=== PATIENT | female | born 1990 | race Caucasian/White ===

== ENCOUNTER → 2016-06-16 | Outpatient (CLI) | payer OTHER ==
[2016-06-16 12:32] LABS: BASO % 0.5 % (0.0-1.0); EOS # 0.2 K/mm3 (0.0-0.50); EOS % 3.3 % (0.0-3.0); LARGE UNSTAINED CELL # 0.1 K/mm3 (0.0-0.4); LARGE UNSTAINED CELL % 1.4 % (0.0-4.0); LYMPH # 2.6 K/mm3 (1.5-6.5); LYMPH % 39.1 % (24.0-44.0); MEAN CORPUSCULAR HEMOGLOBIN 28.8 pg (27.0-33.0); MEAN CORPUSCULAR HGB CONC 33.3 g/dl (32.0-36.5); MEAN CORPUSCULAR VOLUME 86.5 fl (80.0-96.0); MONO # 0.3 K/mm3 (0.0-0.8); NEUTROPHILS # 3.3 K/mm3 (1.8-7.7); NEUTROPHILS % 51.7 % (36.0-66.0); PLATELET COUNT, AUTOMATED 263 k/mm3 (150-450); RED CELL DISTRIBUTION WIDTH 12.3 % (11.5-14.5); WHITE BLOOD COUNT 6.4 K/mm3 (4.0-10.0)
== END ==
LOC: M LAB 12:18
PROVIDERS: ATTEND Family Medicine Addiction Medicine
DX: E61.1 Iron deficiency (principal); R53.83 Other fatigue; R63.5 Abnormal weight gain

== ENCOUNTER 2016-09-04 10:16 | Inpatient (IN) | payer OTHER ==
[~2016-09-04] VITALS: Ht 167.6 cm; Wt 82.0 kg
[2016-09-04] MEDS ORDERED: BUSP5TA PO (10:27)
[2016-09-04] MEDS ORDERED: SERT25TA PO (10:27)
[2016-09-04 11:09] LABS: MEAN CORPUSCULAR HGB CONC 33.5 g/dl (32.0-36.5); MEAN CORPUSCULAR VOLUME 86.6 fl (80.0-96.0); WHITE BLOOD COUNT 6.8 K/mm3 (4.0-10.0)
[2016-09-04 11:32] LABS: METHADONE URINE NEGATIVE (NEGATIVE)
[2016-09-04 11:34] LABS: CONTROL LINE HCG INT CTR LINE PRESENT
[2016-09-04 11:51] LABS: ALBUMIN 3.9 GM/DL (3.2-5.2); ALBUMIN/GLOBULIN RATIO 1.18 (1.00-1.93); ALKALINE PHOSPHATASE 75 U/L (45-117); ALT/SGPT 20 U/L (12-78); ANION GAP 7 MEQ/L (8-16); AST/SGOT 15 U/L (15-37); BILIRUBIN,DIRECT 0.1 MG/DL (0.0-0.2); BILIRUBIN,TOTAL 0.3 MG/DL (0.2-1.0); BLOOD UREA NITROGEN 12 MG/DL (7-18); CALCIUM LEVEL 9.1 MG/DL (8.5-10.1); CARBON DIOXIDE LEVEL 27 MEQ/L (21-32); CHLORIDE LEVEL 105 MEQ/L (98-107); CREATININE FOR GFR 0.67 MG/DL (0.55-1.02); GLOMERULAR FILTRATION RATE > 60.0 (>60); GLUCOSE, FASTING 90 MG/DL (70-105); POTASSIUM SERUM 4.4 MEQ/L (3.5-5.1); SODIUM LEVEL 139 MEQ/L (136-145); TOTAL PROTEIN 7.2 GM/DL (6.4-8.2)
[2016-09-04 14:25] VITALS: BP 119/74
[2016-09-04] MEDS ORDERED: ACETAMINOPHEN TAB 650MG DOSE (2X325MG) PO PRN (16:00)
[2016-09-04] MEDS ORDERED: MOM 30ML SUSPENSION UDC PO PRN (16:00)
[2016-09-04] MEDS ORDERED: MAALOX 30 ML SUSP *UDC PO PRN (16:00)
[2016-09-04] MEDS ORDERED: traZODone 50 MG TAB PO PRN (16:00)
[2016-09-04] MEDS ORDERED: hydrOXYzine 25 MG TAB PO PRN (16:00)
[2016-09-04] MEDS ORDERED: SERTRALINE HCL 25 MG TABLET PO SCH (21:00)
[2016-09-04] MEDS: busPIRone 10 MG TAB PO SCH (21:21)
[2016-09-05 06:32] VITALS: BP 140/64
[2016-09-05] MEDS: busPIRone 10 MG TAB PO SCH ×2 (08:28→20:33)
--- NOTE | 2016-09-05 11:05 | HPEPDOC ---
Medical History and Physical Date of Admission Sep 04, 2016 at 12:50 History and Physical PCP: [facility] ATTENDING: Dr. Donell Ortez HPI: 26yoF admitted to [facility] for unspecified depressive disorder, being medically examined today. No acute medical complaints today. Denies any fevers, chills, weakness, fatigue, MCKEON, CP, SOB, cough, palpitations, abdominal pain, N/V /D or changes in bowel or bladder habits. 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 ROS: As noted in HPI, otherwise 11pt ROS of systems reviewed and remarkable only for LMP 08/21/16. PE: GEN: 26 yo F, appears stated age. Well-nourished, well developed. No acute distress. Alert and oriented x 3. Pleasant, interactive. HEENT: Normocephalic, atraumatic. Pupils are equal, round, and reactive to light. Extraocular movements are intact. No nystagmus appreciated. Sclera are nonicteric. Conjunctiva without injection. Nose midline. Nasal turbinates without bogginess. EACs both patent BL. TMs both visualized and gibson with good cone of light, no bulging or erythema. No facial asymmetry. Moist mucous membranes. Dentition fair. Pharynx pink and moist, no cobblestoning. Neck supple , trachea midline. No lymphadenopathy or thyromegaly appreciated. CHEST: Regular rate and rhythm, +S1, +S2 LUNGS: Clear to auscultation bilaterally. No wheezes, rales, or rhonchi. Breathing appears symmetric and easy. Patient is speaking in full sentences. No accessory muscle use. ABD: Round, soft, non-tender, non-distended. +Bowel sounds throughout. No rebound or guarding. No costovertebral angle tenderness. EXT: Pulses 2+ bilaterally dorsalis pedis and radial. No lower extremity edema appreciated. SKIN: Gordon, dry, warm. Capillary refill <2sec. No rashes. NEURO: Alert and oriented x 3. Cranial nerves III-XII are intact. No focal deficits appreciated. EKG: Pending. A&P: 26yoF admitted to [facility] for unspecified depressive disorder 1. Psych. Plan per Psychiatry. Obtain baseline EKG to assure the safety of psychiatric medications as they can prolong the QT interval. 2. Follow up with PCP on discharge. 3. Staff member Margaret JAMISON present throughout exam. Vital Signs Vital Signs Date Time Temp Pulse Resp B/P (MAP) Pulse Ox O2 Delivery O2 Flow Rate FiO2 09/05/16 06:32 97.5 65 16 140/64 (89) 09/04/16 14:25 99 Room Air Laboratory Data Labs 24H Laboratory Tests 2 09/04/16 11:00: Anion Gap 7L, Glomerular Filtration Rate > 60.0, Calcium Level 9.1, Aspartate Amino Transf (AST/SGOT) 15, Alanine Aminotransferase (ALT/SGPT) 20, Alkaline Phosphatase 75, Total Bilirubin 0.3, Direct Bilirubin 0.1, Total Protein 7.2, Albumin 3.9, Albumin/Globulin Ratio 1.18, Thyroid Stimulating Hormone (TSH) 2.400, Human Chorionic Gonadotropin, Qual NEGATIVE, Salicylates Level < 1.7L, Urine Amphetamines Screen NEGATIVE, Urine Benzodiazepines Screen NEGATIVE, Urine Opiates Screen NEGATIVE, Urine Methadone Screen NEGATIVE, Acetaminophen Level < 2.0L, Urine Barbiturates Screen NEGATIVE, Urine Phencyclidine Screen NEGATIVE, Urine Cocaine Metabolite Screen NEGATIVE, Urine Cannabinoids Screen NEGATIVE, Ethyl Alcohol Level 0.003 CBC/BMP Laboratory Tests 09/04/16 11:00 Red Blood Count 4.44, Mean Corpuscular Volume 86.6, Mean Corpuscular Hemoglobin 29.0, Mean Corpuscular Hemoglobin Concent 33.5, Red Cell Distribution Width 13.0 Home Medications Scheduled Buspirone HCl (Buspirone HCl) 5 Mg Tab, 5 MG PO BID Sertraline Hcl (Sertraline HCl) 25 Mg Tab, 25 MG PO QHS Allergies Coded Allergies: Amoxicillin (Verified Allergy, Unknown, hives, 09/04/16) Rachel Alaniz Sep 05, 2016 11:05
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
[2016-09-05 18:27] VITALS: BP 122/67
[2016-09-05] MEDS: DIVALPROEX 250 MG TAB PO SCH (20:33)
[2016-09-05] MEDS ORDERED: SERTRALINE HCL 50 MG TAB PO SCH (21:00)
--- NOTE | 2016-09-06 06:20 | ECGEPIP ---
Stationary ECG Study [facility] Test Date: 2016-09-05 Pat Name: GUILLERMO HENAO Department: Room: [place] [address] Gender: F Personal Protection Specialist: : 1990 Requested By: Rachel Alaniz Order Number: [id number] Reading MD: Donell Ortez Measurements Intervals [place] Rate: 64 P: 34 CO: 139 QRS: 9 QRSD: 93 T: 63 QT: 401 QTc: 414 Interpretive Statements SINUS RHYTHM NONSPECIFIC T-WAVE ABNORMALITY Comparison tracing not on file Electronically Signed On 09-06-2016 6:20:10 EDT by Donell Ortez
[2016-09-06 07:15] VITALS: BP 136/67
[2016-09-06] MEDS: busPIRone 10 MG TAB PO SCH ×2 (08:33→20:27)
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
[2016-09-06 18:00] VITALS: BP 134/74
[2016-09-06] MEDS: DIVALPROEX 250 MG TAB PO SCH (20:27)
[2016-09-06] MEDS: QUEtiapine FUMARATE 12.5 MG HALF-TAB PO SCH (20:27)
[2016-09-06] MEDS ORDERED: SERTRALINE HCL 25 MG TABLET PO ONE (21:00)
[2016-09-07 06:00] VITALS: BP 131/69
[2016-09-07] MEDS: busPIRone 10 MG TAB PO SCH ×2 (08:31→20:31)
[2016-09-07] MEDS: PARoxetine 10MG TABLET PO SCH (08:31)
--- NOTE | 2016-09-07 12:45 | IPN ---
DATE: 09/07/2016 CHIEF COMPLAINT: Says feels better. OBJECTIVE: Seen for followup in the presence of staff. Says feels better, and that she is less anxious. Says sleep is improved, as is appetite. She indicates is less anxious. MENTAL STATUS EXAMINATION: Neat and cooperative. No agitation. No psychomotor retardation. Coherent. Affect restricted but reactive. Currently denies any thoughts of harming herself or anyone else. Does not appear to be internally preoccupied. Cognition grossly intact. Judgment and insight possibly improved. Denies suicidal thoughts or intents. ASSESSMENT: Generalized anxiety disorder. Autism spectrum disorder by history. PLAN: Continue current care and observations, encouraged participation in activities in the unit. Continue with the fluoxetine at 10 mg daily, divalproex and Depakote at 250 mg at night. BuSpar 10 mg twice a day.
[2016-09-07 18:00] VITALS: BP 118/74
[2016-09-07] MEDS: DIVALPROEX 250 MG TAB PO SCH (20:31)
[2016-09-07] MEDS: QUEtiapine FUMARATE 12.5 MG HALF-TAB PO SCH (20:31)
[2016-09-08 06:00] VITALS: BP 121/67
[2016-09-08] MEDS: PARoxetine 10MG TABLET PO SCH (09:13)
[2016-09-08] MEDS: busPIRone 10 MG TAB PO SCH ×2 (09:13→20:53)
[2016-09-08 18:00] VITALS: BP 126/82
--- NOTE | 2016-09-08 19:03 | IPN ---
DATE: 09/08/2016 CHIEF COMPLAINT: Says feels better. SUBJECTIVE: Seen for followup. Indicates has been doing better. Moods have been good, less anxious. MENTAL STATUS EXAMINATION; Cooperative, coherent. No agitation. Affect reactive, broad. Currently denies any thoughts of harming herself or anyone else. No evidence at present of any psychosis. Cognition grossly intact. Judgment and insight improved. ASSESSMENT: 1. Generalized anxiety disorder. 2. Autism spectrum disorder. PLAN: Continue current care, observations. Encourage participation and activities in the unit.
[2016-09-08] MEDS: DIVALPROEX 250 MG TAB PO SCH (20:53)
[2016-09-08] MEDS: QUEtiapine FUMARATE 12.5 MG HALF-TAB PO SCH (20:53)
[2016-09-09 06:14] VITALS: BP 126/60
[2016-09-09] MEDS: PARoxetine 10MG TABLET PO SCH (08:26)
[2016-09-09] MEDS: busPIRone 10 MG TAB PO SCH ×2 (08:26→20:31)
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
[2016-09-09 18:00] VITALS: BP 122/62
[2016-09-09] MEDS: QUEtiapine FUMARATE 12.5 MG HALF-TAB PO SCH (20:31)
[2016-09-09] MEDS: DIVALPROEX 500 MG TAB PO SCH (20:31)
[2016-09-10 06:14] VITALS: BP 131/67
[2016-09-10] MEDS: busPIRone 10 MG TAB PO SCH ×2 (08:52→20:13)
[2016-09-10] MEDS: PARoxetine 20 MG TAB PO SCH (08:52)
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
[2016-09-10 18:32] VITALS: BP 123/64
[2016-09-10] MEDS: QUEtiapine FUMARATE 12.5 MG HALF-TAB PO SCH (20:13)
[2016-09-10] MEDS: DIVALPROEX 500 MG TAB PO SCH (20:13)
[2016-09-11 06:39] VITALS: BP 122/79
[2016-09-11] MEDS: busPIRone 10 MG TAB PO SCH ×2 (08:33→20:17)
[2016-09-11] MEDS: PARoxetine 20 MG TAB PO SCH (08:33)
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
[2016-09-11 18:19] VITALS: BP 121/69
[2016-09-11] MEDS: QUEtiapine FUMARATE 12.5 MG HALF-TAB PO SCH (20:17)
[2016-09-11] MEDS ORDERED: DIVALPROEX 250 MG TAB PO SCH (21:00)
[2016-09-12 06:58] VITALS: BP 90/52
[2016-09-12] MEDS ORDERED: DEPA250T32 PO (08:22)
[2016-09-12] MEDS: busPIRone 10 MG TAB PO SCH (08:22)
[2016-09-12] MEDS ORDERED: QUET1TAB7 PO (08:22)
[2016-09-12] MEDS ORDERED: BUSP10TA PO (08:22)
[2016-09-12] MEDS ORDERED: PARO20TA3 PO (08:22)
[2016-09-12] MEDS: PARoxetine 20 MG TAB PO SCH (08:22)
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
[2016-09-13] MEDS ORDERED: QUET1TAB7 PO (11:33)
== END 2016-09-12 12:08 | disposition home or self-care (01) | DRG 758 ==
LOC: M ED 10:54 → M ED INP 12:50 → M PSY 14:45
PROVIDERS: ADMIT Psychiatry & Neurology Psychiatry; ATTEND Psychiatry & Neurology Psychiatry
DX: F63.9 Impulse disorder, unspecified (principal); F84.0 Autistic disorder; F41.1 Generalized anxiety disorder; Z91.5 Personal history of self-harm; Z82.61 Family history of arthritis; Z82.0 Family history of epilepsy and other diseases of the nervous system; Z79.899 Other long term (current) drug therapy

== ENCOUNTER → 2017-05-09 | Outpatient (CLI) | payer OTHER ==
[2017-05-09 10:41] LABS: VALPROIC ACID (DEPAKOTE) 72.1 UG/ML (50.0-100.0)
== END ==
LOC: M LAB 09:32
DX: F31.81 Bipolar II disorder (principal)
CPT/HCPCS: 80164

== ENCOUNTER → 2017-09-05 | Outpatient (REF) | payer OTHER | LOC: M LAB REF 16:40 | DX: Z12.4 Encounter for screening for malignant neoplasm of cervix (principal) ==

== ENCOUNTER → 2019-02-09 | Outpatient (REF) | payer OTHER ==
[~2019-02-09] MED LIST: BUSP10TA PO; BUSP5TA PO; DEPA250T32 PO; PARO20TA3 PO; QUET1TAB7 PO; SERT25TA85 PO
== END ==
LOC: M LAB REF 17:44
PROVIDERS: ATTEND Obstetrics & Gynecology
DX: Z12.4 Encounter for screening for malignant neoplasm of cervix (principal)

== ENCOUNTER → 2019-04-15 | Outpatient (REF) | payer OTHER, MEDICAID ==
[2019-04-15 13:33] LABS: BASO # 0.1 10^3/uL (0.0-0.2); BASO % 0.9 % (0.0-1.0); EOS # 0.2 10^3/uL (0.0-0.5); EOS % 2.6 % (0.0-3.0); HEMATOCRIT 39.7 % (36.0-47.0); HEMOGLOBIN 12.7 g/dl (12.0-15.5); LYMPH # 2.4 10^3/uL (1.5-5.0); LYMPH % 41.8 % (24.0-44.0); MEAN CORPUSCULAR HEMOGLOBIN 28.9 pg (27.0-33.0); MEAN CORPUSCULAR VOLUME 90.4 fl (80.0-96.0); MONO # 0.4 10^3/uL (0.0-0.8); MONO % 6.9 % (0.0-5.0); NEUTROPHILS # 2.8 10^3/uL (1.5-8.5); NEUTROPHILS % 47.6 % (36.0-66.0); PLATELET COUNT, AUTOMATED 267 10^3/uL (150-450); RED BLOOD COUNT 4.39 10^6/uL (4.00-5.40); WHITE BLOOD COUNT 5.8 10^3/uL (4.0-10.0)
[2019-04-15 13:49] LABS: ALBUMIN 3.9 GM/DL (3.2-5.2); ALT/SGPT 14 U/L (12-78); BILIRUBIN,TOTAL 0.3 MG/DL (0.2-1.0); BLOOD UREA NITROGEN 9 MG/DL (7-18); CARBON DIOXIDE LEVEL 26 MEQ/L (21-32); CHLORIDE LEVEL 104 MEQ/L (98-107); CHOLESTEROL LEVEL 223 MG/DL (<200); CHOLESTEROL RISK RATIO 3.231 (<5); CREATININE FOR GFR 0.86 MG/DL (0.55-1.30); FREE T4 1.01 NG/DL (0.76-1.46); GLOMERULAR FILTRATION RATE > 60.0 (>60); GLUCOSE, FASTING 104 MG/DL (70-100); HDL CHOLESTEROL 69 MG/DL (>40); LDL CHOLESTEROL 135 MG/DL (<100); NON-HDL-C 154 MG/DL; SODIUM LEVEL 138 MEQ/L (136-145); TOTAL 25(OH) VITAMIN D 53.2 NG/ML (30.0-100.0); TOTAL PROTEIN 7.4 GM/DL (6.4-8.2); TRIGLYCERIDES LEVEL 94 MG/DL (<150)
[2019-04-15 14:03] LABS: HEMOGLOBIN A1c 5.2 %
== END ==
LOC: M LAB REF 12:16
PROVIDERS: ATTEND Nurse Practitioner Family
DX: Z13.29 Encounter for screening for other suspected endocrine disorder (principal); E78.5 Hyperlipidemia, unspecified

== ENCOUNTER → 2019-09-23 | Outpatient (REF) | payer OTHER | LOC: M LAB REF 17:27 | PROVIDERS: ATTEND Physician Assistant | DX: D22.5 Melanocytic nevi of trunk (principal) ==

== ENCOUNTER → 2020-02-08 | Outpatient (REF) | payer OTHER, MEDICAID ==
[2020-02-08 13:28] LABS: HEMATOCRIT 39.5 % (36.0-47.0); HEMOGLOBIN 13.2 g/dl (12.0-15.5); MEAN CORPUSCULAR HEMOGLOBIN 29.7 pg (27.0-33.0); MEAN CORPUSCULAR HGB CONC 33.4 g/dl (32.0-36.5); MEAN CORPUSCULAR VOLUME 88.8 fl (80.0-96.0); PLATELET COUNT, AUTOMATED 275 10^3/uL (150-450); RED BLOOD COUNT 4.45 10^6/uL (4.00-5.40); WHITE BLOOD COUNT 6.6 10^3/uL (4.0-10.0)
[2020-02-08 13:59] LABS: HCG, SERUM QUANTITATIVE < 1.0 MIU/ML
== END ==
LOC: M PLALAB 11:33
PROVIDERS: ATTEND Obstetrics & Gynecology
DX: N93.9 Abnormal uterine and vaginal bleeding, unspecified (principal)

== ENCOUNTER → 2020-02-21 | Outpatient (CLI) | payer OTHER | LOC: M LABSMTC 10:23 | PROVIDERS: ATTEND Family Medicine | DX: Z20.828 Contact with and (suspected) exposure to other viral communicable diseases (principal) ==

== ENCOUNTER 2020-05-26 08:53 | Emergency (ER) | payer OTHER ==
[~2020-05-26] VITALS: Ht 167.6 cm; Wt 100.0 kg
[2020-05-26 08:53] VITALS: BP 150/87
[~2020-05-26 08:53] MED LIST changes: -QUET1TAB7 PO; +QUET25TA3 PO
--- OUTSIDE RECORDS SUMMARY | 2020-05-26 08:57 | CCD ---
Author Author Precious Augustin Organization Unknown Address [address] [place] [address] Phone Care Team Providers Care Senior Economist Name Role Phone Demetria Betsy PCP Allergies, Adverse Reactions, Alerts Concept Allergy Name Reaction Severity Onset Date Status Documentation Date Phone Number Npid Taxonomy Code Taxonomy Desc Author Last Name Author Fi rst Name Concept Type 175820 amoxicillin urticaria (hives) Active 08/19/2014 [id number] Psychiatric/Mental Health Lexus Renae RX NORM Problem List Concept Problem Description Status Start Date Created Date Resolv ed Date Snomed Code F41.1 Generalized Anxiety Disorder Active 02/27/2015 02/27/2015 F31.81 Bipolar II Disorder Active 01/31/2017 01/31/2017 Medications Rx Norm Medication Route Route Concept Start Date Stop Date Dosage Ramy quency Duration Formula Strength Dosage Form Dosage Form Code Dosage Description Medication Id Account Npid Author First Name Author Last Name Taxonomy Code Taxonomy Desc Phone Number [phone] Depakote by mouth [id number] 04/27/2019 at bedtime 250 mg tablet,delayed release (DR/EC) 96999 [id number] [phone] Pauline Zhao [id number] Psychiatric/Mental Health [phone] paroxetine HCl by mouth [id number] 07/29/2019 once a day 3 0 mg tablet 33177 814918 [phone] Pauline Zhao [id number] Psychiatric/Menta l Health [phone] [id number] divalproex by mouth [id number] 07/29/2019 every night 5 00 mg tablet,delayed release (DR/EC) 82878 968017 [id number] Lety Zhao [id number] Psychiatric/Mental Health [id number] 037199 buspirone by mouth Z44567 01/25/2020 twice a day 15 mg tab let 89383 219941 [id number] Pauline Zhao [id number] Psychiatric/Mental Health [id number] Social History Social History Element Description Concept Effective Date Smoking Status Current some day smoker [id number] Immunizations No Data in Section Vital Signs No Data in Section Procedures Date Concept Id Description Targeted Site Concept Targeted Site Concept Type 05/11/2020 51165 Extended Individual Psychotherapy - 45 min CPT Patient has no history of implantable de vices Encounters Encounter Start Date End Date Encounter Type Description Diagnosis Di agnosis Desc Location Author First Name Author Last Name Npid Taxonomy Cod e Taxonomy Desc Phone Number Location Addr1 Location Addr2 Location [facility] [id number] 05/11/2020 05/11/2020 16867 Extended Individual Psych otherapy - 45 min F41.1 Generalized Anxiety Disorder [facility] Dani Meyer [id number] Key Bed Installer [id number] [address] [address] Plan of Treatment No Data in Section Lab Results No Data in Section Instructions No Data in Section Insurance Providers Insurance Id Policy Effective Date Policy Thru Date Company N dilia [id number] 2013 [employer] Managed Roseline parmar
--- OUTSIDE RECORDS SUMMARY | 2020-05-26 08:57 | CCD ---
Author Author Precious Augustin Organization Unknown Address [address] [place] [address] Phone Care Team Providers Care Development Rep Name Role Phone Demetria Betsy PCP Allergies, Adverse Reactions, Alerts Concept Allergy Name Reaction Severity Onset Date Status Documentation Date Phone Number Npid Taxonomy Code Taxonomy Desc Author Last Name Author Fi rst Name Concept Type 182406 amoxicillin urticaria (hives) Active 08/19/2014 [id number] Psychiatric/Mental Health Lexus Renae RX NORM Problem [...] Name Taxonomy Code Taxonomy Desc Phone Number [phone] Depakote by mouth [id number] 04/27/2019 at bedtime 250 mg tablet,delayed release (DR/EC) 31318 170182 [phone] Pauline Zhao [id number] Psychiatric/Mental Health [phone] 2250417 paroxetine HCl by mouth [id number] 07/29/2019 once a day 3 0 mg tablet 72799 660494 [id number] Pauline Zhao [id number] Psychiatric/Menta l Health [id number] [id number] divalproex by mouth B79470 07/29/2019 every night 5 00 mg tablet,delayed release (DR/EC) 28139 981650 [id number] Lety Zhao [id number] Psychiatric/Mental Health [id number] 915119 buspirone by mouth Q41614 01/25/2020 twice a day 15 mg tab let 64035 620209 [id number] Pauline Zaho [id number] Psychiatric/Mental Health [id number] Social History Social History Element Description Concept Effective Date Smoking Status Current some day smoker [id number] Immunizations No Data in Section Vital Signs No Data in Section Procedures Date Concept Id Description Targeted Site Concept Targeted Site Concept Type 05/04/2020 76903 Extended Individual Psychotherapy - 45 min CPT Patient has no history of implantable de vices Encounters Encounter Start Date End Date Encounter Type Description Diagnosis Di agnosis Desc Location Author First Name Author Last Name Npid Taxonomy Cod e Taxonomy Desc Phone Number Location Addr1 Location Addr2 Location [facility] Location Sta te Location Zip [id number] 05/04/2020 05/04/2020 83515 Extended Individual Psych otherapy - 45 min F41.1 Generalized Anxiety Disorder [facility] Dani Meyer [id number] Safe Technician [id number] [address] [address] Plan of Treatment No Data in Section Lab Results No Data in Section Instructions No Data in Section Insurance Providers Insurance Id Policy Effective Date Policy Thru Date Company N dilia [id number] 2013 [employer] Man[employer] Roseline parmar
--- OUTSIDE RECORDS SUMMARY | 2020-05-26 08:57 | CCD ---
Author Author Precious Zhao Organization Unknown Address [address] [place] [address] Phone Care Team Providers Care Independent Living Advisor Name Role Phone Cece Pauline PCP Allergies, Adverse Reactions, Alerts Concept Allergy Name Reaction Severity Onset Date Status Documentation Date Phone Number Npid Taxonomy Code Taxonomy Desc Author Last Name Author Fi rst Name Concept Type 534085 amoxicillin urticaria (hives) Active 08/19/2014 [id number] Psychiatric/Mental Health Nans Batool RX NORM Problem List Concept Problem Description [...] Name Taxonomy Code Taxonomy Desc Phone Number [phone] Depakote by mouth [id number] 04/27/2019 at bedtime 250 mg tablet,delayed release (DR/EC) 81113 732914 [id number] Pauline Zhao [id number] Psychiatric/Mental Health [phone] 1147791 paroxetine HCl by mouth M30089 07/29/2019 once a day 3 0 mg tablet 96263 437564 [id number] Pauline Zhao [id number] Psychiatric/Menta l Health [id number] 1250745 divalproex by mouth T32109 07/29/2019 every night 5 00 mg tablet,delayed release (DR/EC) 35987 297999 [id number] Lety Zhao [id number] Psychiatric/Mental Health [id number] 282165 buspirone by mouth T32830 01/25/2020 twice a day 15 mg tab let 42794 416478 [id number] Pauline Zhao [id number] Psychiatric/Mental Health [id number] Social History Social History Element Description Concept Effective Date Smoking Status Current some day smoker [id number] Immunizations No Data in Section Vital Signs Encounter Date Height Ins Weight Lbs Bmi Bp Systolic Bp Diastoli c Oxygen Saturation Respiration Rate Pulse Rate Body Temp Head Circumference Heigh t Lying 04/19/2020 0.00 0.00 0.00 0 0 0.00 0 0 0.00 0.0 0.0 0 Procedures Date Concept Id Description Targeted Site Concept Targeted Site Concept Type 04/19/2020 88183-55 [facility] Telemed E/M Lvl 3--Est pt CPT 04/19/2020 01500-45 Telemed A/O 30" CPT Patient has no history of implantable de vices Encounters Encounter Start Date End Date Encounter Type Description Diagnosis Di agnosis Desc Location Author First Name Author Last Name Npid Taxonomy Cod e Taxonomy Desc Phone Number Location Addr1 Location Addr2 Location [facility] Location [facility] [id number] 04/19/2020 04/19/2020 61468-15 [facility] Telemed E/M Lvl 3--Est p t F41.1 Generalized Anxiety Disorder [facility] Cece Carpenter [phone] [id number] Psychiatric/Mental Health [phone] [address] [facility] [address] Plan of Treatment No Data in Section Lab Results No Data in Section Instructions No Data in Section Functional Cognitive Status No Data in Section Insurance Providers Insurance Id Policy Effective Date Policy Thru Date [employer] [id number] 2013 [employer] Managed Roseline parmar
--- OUTSIDE RECORDS SUMMARY | 2020-05-26 08:57 | CCD ---
Author Author Precious Augustin Organization Unknown Address [address] [place] [address] Phone Care Team Providers Care Illuminating Engineer Name Role Phone Augustincipriano Betsy PCP Allergies, Adverse Reactions, Alerts Concept Allergy Name Reaction Severity Onset Date Status Documentation Date Phone Number Npid Taxonomy Code Taxonomy Desc Author Last Name Author Fi rst Name Concept Type 633889 amoxicillin urticaria (hives) Active 08/19/2014 [id number] Psychiatric/Mental Health Lexus Renae RX NORM Problem [...] Name Taxonomy Code Taxonomy Desc Phone Number [id number] Seroquel 09/19/2017 at bedtime 25 mg tablet 72452 712954 [phone] Pauline Zhao [id number] Psychiatric/Mental Health [phone] Depakote by mouth [id number] 04/27/2019 at bedtime 250 mg tablet,delayed release (DR/EC) 06120 947315 [id number] Pauline Zhao [id number] Psychiatric/Mental Health [phone] 0798515 paroxetine HCl by mouth O02647 07/29/2019 once a day 3 0 mg tablet 28328 930836 [id number] Pauline Zhao [id number] Psychiatric/Menta l Health [phone] 5000996 divalproex by mouth E03500 07/29/2019 every night 5 00 mg tablet,delayed release (DR/EC) 95415 465265 [id number] Lety Zhao [id number] Psychiatric/Mental Health [id number] 346172 buspirone by mouth D12461 01/25/2020 twice a day 15 mg tab let 15965 292748 [id number] Pauline Zhao [id number] Psychiatric/Mental Health [id number] Social History Social History Element Description Concept Effective Date Smoking Status Current some day smoker [id number] Immunizations No Data in Section Vital Signs No Data in Section Procedures Date Concept Id Description Targeted Site Concept Targeted Site Concept Type 04/10/2020 20927 Extended Individual Psychotherapy - 45 min CPT Patient has no history of implantable de vices Encounters Encounter Start Date End Date Encounter Type Description Diagnosis Di agnosis Desc Location Author First Name Author Last Name Npid Taxonomy Cod e Taxonomy Desc Phone Number Location Addr1 Location Addr2 [address] 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
--- OUTSIDE RECORDS SUMMARY | 2020-05-26 08:57 | CCD ---
Author Author Precious Augustin Organization Unknown Address [address] [place] [address] Phone Care Team Providers Care [facility] Name Role Phone Carmen Augustinica PCP Allergies, Adverse Reactions, Alerts Concept Allergy Name Reaction Severity Onset Date Status Documentation Date Phone Number Npid Taxonomy Code Taxonomy Desc Author Last Name Author Fi rst Name Concept Type 501395 amoxicillin urticaria (hives) Active 08/19/2014 [id number] [facility] Renae RX NORM Problem [...] Name Taxonomy Code Taxonomy Desc Phone Number [id number] Seroquel 09/19/2017 at bedtime 25 mg tablet 27652 [id number] [phone] Pauline Zhao [id number] Psych[facility] [phone] Depakote by mouth [id number] 04/27/2019 at bedtime 250 mg tablet,delayed release (DR/EC) 06940 [phone] Pauline Zhao [id number] Psych[facility] [phone] [id number] paroxetine HCl by mouth [id number] 07/29/2019 once a day 3 0 mg tablet 46354 [id number] Paulinesohail Zhao [id number] [facility] [phone] divalproex by mouth [id number] 07/29/2019 every night 5 00 mg tablet,delayed release (DR/EC) 93428 [id number] [id number] Lety Zhao [id number] Psych[facility] [phone] [id number] buspirone by mouth [id number] 01/25/2020 twice a day 15 [place] 50382 [id number] Pauline Zhao [id number] Psych[facility] [id number] Social History Social History Element Description Concept Effective Date Smoking Status Current some day smoker [id number] Immunizations No Data in Section Vital Signs No Data in Section Procedures Date Concept Id Description Targeted Site Concept Targeted Site Concept Type 03/13/2020 37881 Extended Individual Psychotherapy - 45 min CPT Patient has no history of implantable de vices Encounters Encounter Start Date End Date Encounter Type Description Diagnosis Di agnosis Desc Location Author First Name Author Last Name Npid Taxonomy Cod e Taxonomy Desc Phone Number Location Addr1 Location Addr2 Location [facility] Location [place] Location Zip [id number] 03/13/2020 03/13/2020 40482 Extended Individual Psych otherapy - 45 min F41.1 Generalized Anxiety Disorder Community [facility] Dani Meyer [phone] [id number] Biochemistry Technician [phone] [address] [address] Plan of Treatment No Data in Section Lab Results No Data in Section Instructions No Data in Section Insurance Providers Insurance Id Policy Effective Date Policy Thru Date [employer] Barbi dobbs [id number] 2013 [employer] Managed Roseline parmar
--- OUTSIDE RECORDS SUMMARY | 2020-05-26 08:58 | CCD ---
Author Author [facility] Organization [facility] Address Unknown Phone Unavailable Care Team Providers Care Pass Worker Name Role Phone Can Ortez MD Unavailable Unavailable Can Ortez MD Unavailable Unavailable Can Ortez MD Unavailable Unavailable Can Ortez MD Unavailable Unavailable Can Ortez MD Unavailable Unavailable Can Ortez MD Unavailable Unavailable Can Ortez MD Unavailable Unavailable Can Ortez MD Unavailable Unavailable Can Ortez MD Unavailable Unavailable Can Ortez MD Unavailable Unavailable Can Ortez MD Unavailable Unavailable Can Ortez MD Unavailable Unavailable Can Ortez MD Unavailable Unavailable Can Ortez MD Unavailable Unavailable Can Ortez MD Unavailable Unavailable Can Ortez MD Unavailable Unavailable Can Ortez MD Unavailable Unavailable Can Ortez MD Unavailable Unavailable Can Ortez MD Unavailable Unavailable Can Ortez MD Unavailable Unavailable Can Ortez MD Unavailable Unavailable Can Ortez MD Unavailable Unavailable Can Ortez MD Unavailable Unavailable Can Ortez MD Unavailable Unavailable Can Ortez MD Unavailable Unavailable Can Ortez MD Unavailable Unavailable Can Ortez MD Unavailable Unavailable Can Ortez MD Unavailable Unavailable Can Ortez MD Unavailable Unavailable Can Ortez MD Unavailable Unavailable Can Ortez MD Unavailable Unavailable Can Ortez MD Unavailable Unavailable Can Ortez MD Unavailable Unavailable Can Ortez MD Unavailable Unavailable Can Ortez MD Unavailable Unavailable Can Ortez MD Unavailable Unavailable Can Ortez MD Unavailable Unavailable Can Ortez MD Unavailable Unavailable Can Ortez MD Unavailable Unavailable Can Ortez MD Unavailable Unavailable Can Ortez MD Unavailable Unavailable Can Ortez MD Unavailable Unavailable Can Ortez MD Unavailable Unavailable Can Ortez MD Unavailable Unavailable Can Ortez MD Unavailable Unavailable Can Ortez MD Unavailable Unavailable Can Ortez MD Unavailable Unavailable Can Ortez MD Unavailable Unavailable Can Ortez MD Unavailable Unavailable Can Ortez MD Unavailable Unavailable Can Ortez MD Unavailable Unavailable Can Ortez MD Unavailable Unavailable Can Ortez MD Unavailable Unavailable Can Ortez MD Unavailable Unavailable Can Ortez MD Unavailable Unavailable Can Ortez MD Unavailable Unavailable Can Ortez MD Unavailable Unavailable Can Ortez MD Unavailable Unavailable Can Ortez MD Unavailable Unavailable Can Ortez MD Unavailable Unavailable Can Ortez MD Unavailable Unavailable Can Ortez MD Unavailable Unavailable Can Ortez MD Unavailable Unavailable Can Ortez MD Unavailable Unavailable Can Ortez MD Unavailable Unavailable Can Ortez MD Unavailable Unavailable Can Ortez MD Unavailable Unavailable Can Ortez MD Unavailable Unavailable Can Ortez MD Unavailable Unavailable Can Ortez MD Unavailable Unavailable Can Ortez MD Unavailable Unavailable Can Ortez MD Unavailable Unavailable Can Ortez MD Unavailable Unavailable Can Ortez MD Unavailable Unavailable Can Ortez MD Unavailable Unavailable Can Ortez MD Unavailable Unavailable Can Ortez MD Unavailable Unavailable Can Ortez MD Unavailable Unavailable Can Ortez MD Unavailable Unavailable Can Ortez MD Unavailable Unavailable Can Ortez MD Unavailable Unavailable Can Ortez MD Unavailable Unavailable Neelima Can Rendon MD Unavailable Unavailable Neelima, Can Rendon MD Unavailable Unavailable Neelima, Can Rendon MD Unavailable Unavailable Neelima, Can Rendon MD Unavailable Unavailable Ortez, Can Rendon MD Unavailable Unavailable Ortez, Can Rendon MD Unavailable Unavailable Ortez, Can Rendon MD Unavailable Unavailable Dario, C Kendall Unavailable Unavailable Goldston, C Kendall Unavailable Unavailable Goldston, C Kendall Unavailable Unavailable Dario, C Kendall Unavailable Unavailable Goldston, C Kendall Unavailable Unavailable Goldston, C Kendall Unavailable Unavailable Dario, C Kendall Unavailable Unavailable Ashland, K Pauline PMH-PULMONARY PHYSICAL THERAPIST Unavailable Unavailable Cece, K Pauline PMH-PULMONARY PHYSICAL THERAPIST Unavailable Unavailable [place]land, K Pauline PMH-PULMONARY PHYSICAL THERAPIST Unavailable Unavailable [place], K Pauline PMH-PULMONARY PHYSICAL THERAPIST Unavailable Unavailable [place], K Pauline PMH-PULMONARY PHYSICAL THERAPIST Unavailable Unavailable [place], K Pauline PMH-PULMONARY PHYSICAL THERAPIST Unavailable Unavailable KEVIN, T MARS BISCUITWARE BRUSHER Unavailable Unavailable KEVIN, T MARS BISCUITWARE BRUSHER Unavailable Unavailable KEVIN, T MARS BISCUITWARE BRUSHER Unavailable Unavailable KEVIN, T MARS BISCUITWARE BRUSHER Unavailable Unavailable KEVIN, T MARS BISCUITWARE BRUSHER Unavailable Unavailable KEVIN, T MARS BISCUITWARE BRUSHER Unavailable Unavailable KEVIN, T MARS BISCUITWARE BRUSHER Unavailable Unavailable KEVIN, T MARS BISCUITWARE BRUSHER Unavailable Unavailable KEVIN, T MARS BISCUITWARE BRUSHER Unavailable Unavailable KEVIN, T MARS BISCUITWARE BRUSHER Unavailable Unavailable KEVIN, T MARS BISCUITWARE BRUSHER Unavailable Unavailable KEVIN, T MARS BISCUITWARE BRUSHER Unavailable Unavailable KEVIN, T MARS BISCUITWARE BRUSHER Unavailable Unavailable KEVIN, T MARS BISCUITWARE BRUSHER Unavailable Unavailable KEVIN, T MARS BISCUITWARE BRUSHER Unavailable Unavailable KEVIN, T MARS BISCUITWARE BRUSHER Unavailable Unavailable KEVIN, T MARS BISCUITWARE BRUSHER Unavailable Unavailable KEVIN, T MARS BISCUITWARE BRUSHER Unavailable Unavailable KEVIN, T MARS BISCUITWARE BRUSHER Unavailable Unavailable KEVIN, T MARS BISCUITWARE BRUSHER Unavailable Unavailable KEVIN, T MARS BISCUITWARE BRUSHER Unavailable Unavailable KEVIN, T MARS BISCUITWARE BRUSHER Unavailable Unavailable KEVIN, T MARS BISCUITWARE BRUSHER Unavailable Unavailable KEVIN, T MARS BISCUITWARE BRUSHER Unavailable Unavailable KEVIN, T MARS BISCUITWARE BRUSHER Unavailable Unavailable KEVIN, T MARS BISCUITWARE BRUSHER Unavailable Unavailable KEVIN, T MARS BISCUITWARE BRUSHER Unavailable Unavailable KEVIN, T MARS BISCUITWARE BRUSHER Unavailable Unavailable KEVIN, T MARS BISCUITWARE BRUSHER Unavailable Unavailable KEVIN, T MARS BISCUITWARE BRUSHER Unavailable Unavailable KEVIN, T MARS BISCUITWARE BRUSHER Unavailable Unavailable KEVIN, T MARS BISCUITWARE BRUSHER Unavailable Unavailable KEVIN, T MARS BISCUITWARE BRUSHER Unavailable Unavailable KEVIN, T MARS BISCUITWARE BRUSHER Unavailable Unavailable KEVIN, T MARS BISCUITWARE BRUSHER Unavailable Unavailable KEVIN, T MARS BISCUITWARE BRUSHER Unavailable Unavailable KEVIN, T MARS BISCUITWARE BRUSHER Unavailable Unavailable KEVIN, T MARS BISCUITWARE BRUSHER Unavailable Unavailable GoutremBetsy cota Unavailable Bry, Marisol BISCUITWARE BRUSHER BISCUITWARE BRUSHER Unavailable Unavailable Bry, A Marisol BISCUITWARE BRUSHER Unavailable Unavailable Bry, A Marisol BISCUITWARE BRUSHER Unavailable Unavailable Bry, A Marisol BISCUITWARE BRUSHER Unavailable Unavailable Bry, A Marisol BISCUITWARE BRUSHER Unavailable Unavailable Bry, A Marisol BISCUITWARE BRUSHER Unavailable Unavailable Bry, A Marisol BISCUITWARE BRUSHER Unavailable Unavailable Bry, A Marisol BISCUITWARE BRUSHER Unavailable Unavailable Bry, A Marisol BISCUITWARE BRUSHER Unavailable Unavailable Bry, A Marisol BISCUITWARE BRUSHER Unavailable Unavailable Bry, A Marisol BISCUITWARE BRUSHER Unavailable Unavailable Bry, A Marisol BISCUITWARE BRUSHER Unavailable Unavailable Bry, A Marisol BISCUITWARE BRUSHER Unavailable Unavailable Bry, A Marisol BISCUITWARE BRUSHER Unavailable Unavailable Bry, A Marisol BISCUITWARE BRUSHER Unavailable Unavailable Bry, A Marisol BISCUITWARE BRUSHER Unavailable Unavailable Bry, A Marisol BISCUITWARE BRUSHER Unavailable Unavailable Bry, A Marisol BISCUITWARE BRUSHER Unavailable Unavailable Bry, A Marisol BISCUITWARE BRUSHER Unavailable Unavailable Bry, A Marisol BISCUITWARE BRUSHER Unavailable Unavailable Bry, A Marisol BISCUITWARE BRUSHER Unavailable Unavailable Bry, A Marisol BISCUITWARE BRUSHER Unavailable Unavailable Bry, A Marisol BISCUITWARE BRUSHER Unavailable Unavailable Bry, A Marisol BISCUITWARE BRUSHER Unavailable Unavailable Bry, A Marisol BISCUITWARE BRUSHER Unavailable Unavailable Bry, A Marisol BISCUITWARE BRUSHER Unavailable Unavailable Bry, A Marisol BISCUITWARE BRUSHER Unavailable Unavailable Bry, A Marisol BISCUITWARE BRUSHER Unavailable Unavailable Bry, A Marisol BISCUITWARE BRUSHER Unavailable Unavailable Re-disclosure Warning The records that you are about to access may contain information from federally-assisted alcohol or drug abuse programs. If such information is present, then the following federally mandated warning applies: This information has been disclosed to you from records protected by federal confidentiality rules (42 CFR part 2). The federal rules prohibit you from making any further disclosure of this information unless further disclosure is expressly permitted by the written consent of the person to whom it pertains or as otherwise permitted by 42 CFR part 2. A general authorization for the release of medical or other information is NOT sufficient for this purpose. The Federal rules restrict any use of the information to criminally investigate or prosecute any alcohol or drug abuse patient.The records that you are about to access may contain highly sensitive health information, the redisclosure of which is protected by Article 27-F of the [facility] Public Health law. If you continue you may have access to information: Regarding HIV / AIDS; Provided by facilities licensed or operated by the [facility] Office of Mental Health; or Provided by the [facility] Office for People With Developmental Disabilities. If such information is present, then the following [facility] mandated warning applies: This information has been disclosed to you from confidential records which are protected by state law. State law prohibits you from making any further disclosure of this information without the specific written consent of the person to whom it pertains, or as otherwise permitted by law. Any unauthorized further disclosure in violation of state law may result in a fine or usp sentence or both. A general authorization for the release of medical or other information is NOT sufficient authorization for further disc losure. Allergies and Adverse Reactions Type Description Substance Reaction Status Data Source(s ) Propensity to adverse reactions to substance amoxicillin Amoxicillin 500 MG Oral Capsule urticaria (hives) Active [facility] Family History Family Member Name Family Member Gender Family Member Status Date o f Status Description Data Source(s) Unknown Unknown Problem [facility] ([facility], ) Unknown Unknown Problem [facility] ([facility], ) Encounters Encounter Providers Location Date Indications Data Source(s ) Outpatient Attender: MARS MORALES 05/02 01:54:43 PM EST - 05/22/2020 03:25:49 PM EST [facility] ([facility] ) Extended Individual Psychotherapy - 45 [facility]2020 08:45:00 AM EST - 05/11/2020 08:45:00 AM EST [facility] ([facility]) Attender: Betsy Augustin 05/11/2020 12:00:0 0 AM EST [facility] ([facility]) [facility] - [facility] 08:00:00 AM EST - 05/04/2020 08:00:00 AM EST [facility] ([facility]) Attender: Betsy Augustin 05/04/2020 12:00:0 0 AM EST [facility] ([facility]) Outpatient Attender: [facility]ine SH[facility]ELDS [facility] 04/19/2020 09:00:00 AM EST - 04/19/2020 09:00:00 AM EST [facility] ([facility]) Attender: Pauline SHIELDS 04/19/2020 12: 00:00 AM EST [facility] ([facility]) Extended Individual Psychotherapy - 45 min Attender: Mirela Augustin [facility] 04/10/2020 10:00:00 AM EST - 04/10/2020 10:00:00 AM EST [facility] ([facility]) Attender: Betsy Augustin 04/10/2020 12:00:0 0 AM EST [facility] ([facility]) Extended Individual Psychotherapy - 45 min Attender: Mirela ca Demetria [facility] 03/13/2020 10:00:00 AM EST - 03/13/2020 10:00:00 AM EST [facility] ([facility]) Attender: Betsy Augustin 03/13/2020 12:00:0 0 AM EST [facility] ([facility]) Outpatient [facility] [address] 02/08/2020 12:00:00 AM EST eCW1 ([facility]) Outpatient Attender: CARMEN LEE 01/27/2020 12:42:01 P M EDT [facility] Outpatient Attender: Pauline SHIELDS [facility] 01/25/2020 10:00:00 AM EDT - 01/25/2020 10:00:00 AM EDT [facility] ([facility]) Attender: Pauline SHIELDS 01/25/2020 12: 00:00 AM EDT [facility] ([facility]) Unknown [address] [facility] [place] [address] 01/19/2020 12:00:00 AM EDT eCW1 ([facility]) Outpatient Attender: CARMEN LEE 01/17/2020 10:26:03 A M EDT [facility] Extended Individual Psychotherapy - 45 min [facility]12[facility] 11:00:00 AM EDT - 01/12/2020 11:00:00 AM EDT [facility] ([facility]) Attender: Betsy Marshallkayleigh 01/12/2020 12:00:0 0 AM EDT [facility] ([facility]) Extended Individual Psychotherapy - 45 min Attender: Mirela ott [facility] 12/28/2019 04:00:00 AM EDT - 12/28/2019 04:00:00 AM EDT [facility] ([facility]) Attender: Betsy Demetria 12/28/2019 12:00:0 0 AM EDT [facility] ([facility]) Outpatient Attender: CARMEN LEE 12/27/2019 03:51:01 P M EDT [facility] Outpatient Attender: CARMEN MORALES 11/26/2019 10:22:00 A M EDT [facility] Outpatient Attender: Marisol LEE 11/25/2019 02:3 1:01 PM EDT [facility] Outpatient Attender: Marisol LEE 11/25/2019 10:3 7:00 AM EDT [facility] Outpatient Attender: CARMEN LEE 11/25/2019 10:17:01 A M EDT [facility] Outpatient Attender: CARMEN LEE 10/14/2019 11:40:02 A M EDT [facility] Outpatient Attender: Marisol LEE 10/14/2019 11:3 9:01 AM EDT [facility] Outpatient Attender: Marisol LEE 10/14/2019 10:4 9:02 AM EDT [facility] Outpatient Attender: Marisol MORRISONP FP 10/14/2019 10:4 8:01 AM EDT [facility] Outpatient Attender: CARMEN Londono [facility] 10/14/2019 10:37:00 A M EDT [facility] Outpatient Attender: CARMEN Londono [facility] 10/13/2019 11:43:00 A M EDT [facility] Outpatient Attender: CARMEN Londono [facility] 10/13/2019 11:42:00 A M EDT [facility] Outpatient Attender: Pauline Zhao [facility] 09/09/2019 09:00:00 AM EDT - 09/09/2019 09:00:00 AM EDT [facility] ([facility]) Attender: Pauline RIVEROKELI 09/09/2019 12: 00:00 AM EDT [facility] ([facility]) Outpatient Attender: CARMEN Londono [facility] 09/06/2019 04:16:00 P M EDT [facility] Outpatient Attender: CARMEN Londono [facility] 09/06/2019 02:04:01 P M EDT [facility] TEMPMHCTelemed 30" Psychotherapy Attender: Betsy devries [facility] 08/25/2019 08:45:00 AM EDT - 08/25/2019 08:45:00 AM EDT [facility] ([facility]) Attender: Betsy Augustin 08/25/2019 12:00:0 0 AM EDT [facility] ([facility]) TEMPMHCTelemed 30" Psychotherapy Att[facility]: [facility]ries [facility] 08/18/2019 10:45:00 AM EDT - 08/18/2019 10:45:00 AM EDT [facility] ([facility]) Attender: Betsy Augustin 08/18/2019 12:00:0 0 AM EDT [facility] ([facility]) [facility] 07/29/2019 09:00:00 AM EDT - 07/29/2019 09:00:00 AM EDT [facility] ([facility]) Attender: Pauline Zhao PM-PULMONARY PHYSICAL THERAPIST 07/29/2019 12: 00:00 AM EDT [facility] ([facility]) Outpatient Attender: CARMEN MORALES FP 07/12/2019 09:52:00 A M EDT [facility] Extended Individual Psychotherapy - 45 min Att[facility] 06/29/2019 10:00:00 AM EDT - 06/29/2019 10:00:00 AM EDT [facility] ([facility]) Attender: Betsy Demetria 06/29/2019 12:00:0 0 AM EDT [facility] ([facility]) Outpatient Attender: CARMEN MORALES FP 06/15/2019 09:42:01 A M EDT [facility] Extended Individual Psychotherapy - 45 min Attender: [facility]la Augustin [facility] 06/08/2019 10:00:00 AM EDT - 06/08/2019 10:00:00 AM EDT [facility] ([facility]) Attender: Betsy Demetria 06/08/2019 12:00:0 0 AM EDT [facility] ([facility]) Extended Individual Psychotherapy - 45 min [facility]20[facility] 11:45:00 AM EST - 05/20/2019 11:45:00 AM EST [facility] ([facility]) Attender: Betsy Demetria 05/20/2019 12:00:0 0 AM EST [facility] ([facility]) Outpatient Attender: Marisol MORALES FP 05/11/2019 09:3 9:01 AM EST [facility] Outpatient Attender: CARMEN LEE 05/11/2019 09:03:01 A M [facility] Outpatient Attender: CARMEN LEE 05/11/2019 09:02:00 A M [facility] Outpatient Attender: Kendall Bishop [facility] 04/27/2019 10:30:00 AM EST - 04/27/2019 10:30:00 AM EST [facility] Attender: Kendall Bishop 04/27/2019 12:00:00 AM EST [facility] ([facility] Outpatient Attender: Marisol MORALES FP 04/21/2019 06:0 3:01 AM [facility] Outpatient Attender: CARMEN MORALES FP 04/20/2019 12:44:00 P M [facility] Outpatient Attender: CARMEN MORALES FP 04/20/2019 12:31:02 P M [facility] Outpatient Attender: Marisol MORALES FP 04/20/2019 12:3 0:07 PM [facility] Outpatient Attender: Marisol MORALES FP 04/20/2019 12:3 0:05 PM [facility] Outpatient Attender: CARMEN MORALES FP 04/20/2019 12:30:01 P M [facility] Outpatient Attender: CARMEN MORRISONP FP 04/20/2019 12:30:01 P M [facility] Outpatient Attender: CARMEN MORRISONP FP 04/20/2019 12:04:01 P M [facility] Outpatient Attender: CARMEN MORALES FP 04/20/2019 11:51:02 A M [facility] Outpatient Attender: CARMEN MORALES FP 04/20/2019 11:51:01 A M [facility] Outpatient Attender: CARMEN MORALES FP 04/20/2019 11:20:02 A M [facility] Outpatient Attender: CARMEN MORALES FP 04/20/2019 11:20:01 A M [facility] Outpatient Attender: Marisol MORALES FP 04/20/2019 11:1 8:59 AM [facility] Outpatient Attender: Marisol MORALES FP 04/18/2019 04:2 0:59 PM [facility] Outpatient Attender: CARMEN MORALES FP 04/15/2019 03:21:01 P M [facility] Outpatient Attender: CARMEN MORALES FP 04/15/2019 03:17:01 P M [facility] Outpatient Attender: Justice Ortez MD FP 04/15/2019 03:10:01 PM [facility] Extended Individual Psychotherapy - 45 min [facility] 11:00:00 AM EST - 04/15/2019 11:00:00 AM EST [facility] ([facility]) Outpatient Attender: Justice Ortez MD 04/15/2019 08:22:42 AM [facility] Attender: Betsy Demetria 04/15/2019 12:00:0 0 AM EST [facility] ([facility]) Outpatient Attender: Justice Ortez MD 04/14/2019 09:01:01 PM [facility] Functional Status Medications Medication Brand Name Start Date Product Form Dose Route Admi nistrative Instructions Pharmacy Instructions Status Indications Reaction Description Data Source(s) buspirone hydrochloride 15 MG Oral Tablet buspirone 2019 12:00:00 AM EDT 15 mg by mouth completed [id number] buspirone by mouth C382 88 01/25/2020 twice a day 15 mg tablet 17237 [id number] Pauline Venkatesh [id number] Psychiatric/Mental Health [facility] ([facility]) buspirone hydrochloride 15 MG Oral Tablet buspirone 2019 12:00:00 AM EDT 15 mg by mouth completed [id number] buspirone by mouth C382 88 01/25/2020 twice a day 15 mg tablet 91036 [id number] Pauline Venkatesh ow [id number] Psychiatric/Mental Health [facility] ([facility]) Sprintec 28 0.25-35 MG-MCG Sprintec 28 0.25-35 MG-MCG 2019 12:00:00 AM EDT 1.0 {tablet} active Sprintec 28 0.25-35 MG-MCG eCW1 ([facility]) Sprintec 28 0.25-35 MG-MCG Sprintec 28 0.25-35 MG-MCG 2019 12:00:00 AM EDT 1.0 {tablet} active Sprintec 28 0.25-35 MG-MCG eCW1 ([facility]) Divalproex Sodium 500 MG Delayed Release Oral Tablet divalpr oex 07/29/2019 12:00:00 AM EDT 500 mg by mouth completed [id number] divalproex by mouth [id number] 07/29/2019 every night 500 mg tablet,delayed release (DR/EC) 68188 [id number] Pauline Zhao [id number] Psychiatric/Mental Health [facility] ([facility]) Divalproex Sodium 500 MG Delayed Release Oral Tablet divalpr oex 07/29/2019 12:00:00 AM EDT 500 mg by mouth completed [id number] divalproex by mouth [id number] 07/29/2019 every night 500 mg tablet,delayed release (DR/EC) 34007 148800 [id number] Pauline Zhao [id number] Psychiatric/Mental Health [facility] ([facility]) buspirone hydrochloride 15 MG Oral Tablet buspirone 2019 12:00:00 AM EDT 15 mg by mouth completed [id number] buspirone by mouth C382 88 07/29/2019 three times a day 15 mg tablet 44315 [id number] Jay Zhao [id number] Psychiatric/Mental Health [facility] ([facility]) Divalproex Sodium 500 MG Delayed Release Oral Tablet divalpr oex 07/29/2019 12:00:00 AM EDT 500 mg by mouth completed [id number] divalproex by mouth [id number] 07/29/2019 every night 500 mg tablet,delayed release (DR/EC) 85460 [id number] Pauline hZao [id number] Psychiatric/Mental Health [facility] ([facility]) buspirone hydrochloride 15 MG Oral Tablet buspirone 2019 12:00:00 AM EDT 15 mg by mouth completed [id number] buspirone by mouth C382 88 07/29/2019 01/25/2020 three times a day 15 mg tablet 63160 [id number] 256 Leidy Sheth [id number] Nurse Practitioner [facility] ([facility]) paroxetine HCl paroxetine HCl 07/29/2019 12:00:00 AM EDT 30 mg by mouth completed [id number] paroxetine HCl by mouth [id number] 07/29/2019 on ce a day 30 mg tablet 36418 430610 [id number] Pauline Zhao [id number] Psychiatric/Mental Health [facility] ([facility]) paroxetine HCl paroxetine HCl 07/29/2019 12:00:00 AM EDT 30 mg by mouth completed [id number] paroxetine HCl by mouth [id number] 07/29/2019 on ce a day 30 mg tablet 00880 028218 [id number] Pauline Zhao [id number] Psychiatric/Mental Health [facility] ([facility]) paroxetine HCl paroxetine HCl 07/29/2019 12:00:00 AM EDT 30 mg by mouth completed [id number] paroxetine HCl by mouth R11036 07/29/2019 on ce a day 30 mg tablet 28779 [id number] Pauline Zhao [id number] Psychiatric/Mental Health [facility] ([facility]) Divalproex Sodium 250 MG Delayed Release Oral Tablet [Depako te] Depakote 04/27/2019 12:00:00 AM EST 250 mg by mouth completed [id number] Depakote by mouth [id number] 04/27/2019 at bedtime 250 mg tablet,de layed release (DR/EC) 29836 [id number] Pauline Zhao [id number] P sychiatric/Mental Health [facility] ([facility]) Divalproex Sodium 250 MG Delayed Release Oral Tablet [Depako te] Depakote 04/27/2019 12:00:00 AM EST 250 mg by mouth completed [id number] Depakote by mouth [id number] 04/27/2019 at bedtime 250 mg tablet,de layed release (DR/EC) [id number] Pauline Zhao [id number] P sychiatric/Mental Health [facility] ([facility]) Paroxetine 30 MG Oral Tablet [Paxil] Paxil 02/04/2019 12:00:00 A M EST 30 mg by mouth completed [id number] Paxil by mouth [id number] 02/04/2019 07/26/2019 at bedtime 30 30 mg tablet [id number] Kendall Bishop 36 [id number] Psychiatric/Mental Health [facility] ([facility]) Paroxetine 30 MG Oral Tablet [Paxil] Paxil 02/04/2019 12:00:00 A M EST 30 mg by mouth completed [id number] Paxil by mouth [id number] 02/04/2019 05/05/2019 at bedtime 30 30 mg tablet 76429 [id number] Kendall Bishop 36 [id number] Psychiatric/Mental Health [facility] ([facility]) Paroxetine 30 MG Oral Tablet [Paxil] Paxil 02/04/2019 12:00:00 A M EST 30 mg by mouth completed Paxil by mouth [id number] 02/04/2019 05/05/2019 at bedtime 30 30 mg tablet 43397 [id number] [id number] Kendall Bishop 36 [id number] Psych[facility] ([facility]) buspirone hydrochloride 15 MG Oral Tablet buspirone 2018 12:00:00 AM EST 15 mg by mouth completed [id number] buspirone by mouth [id number] 88 02/04/2019 05/05/2019 three times a day 30 15 mg tablet 38978 [id number] Kendall Bishop [id number] Psych[facility]Mental Health [facility] ([facility]) Paroxetine 30 MG Oral Tablet [Paxil] Paxil 02/04/2019 12:00:00 A M EST 30 mg by mouth completed [id number] Paxil by mouth [id number] 02/04/2019 07/26/2019 at bedtime 30 30 mg tablet 78480 [id number] Kendall Bishop 36 [id number] Psychiatric/Mental Health [facility] ([facility]) Divalproex Sodium 500 MG Delayed Release Oral Tablet [Depako te] Depakote 10/23/2018 12:00:00 AM EDT 500 mg by mouth completed [id number] Depakote by mouth [id number] 10/23/2018 05/14/2019 at bedtime 30 500 mg tablet ,delayed release (DR/EC) 54944 [id number] [phone] Kendall Bishop [id number] Psych[facility] ([facility]) Divalproex Sodium 500 MG Delayed Release Oral Tablet [Depako te] Depakote 10/23/2018 12:00:00 AM EDT 500 mg by mouth completed [id number] Depakote by mouth [id number] 10/23/2018 04/27/2019 at bedtime 30 500 mg tablet ,delayed release (DR/EC) 55489 [id number] [id number] Kendall Bishop [id number] [facility] ([facility]) Insurance Providers Payer name Policy type / Coverage type Policy ID Covered alliance party ID Covered alliance party's relationship to scott Policy Scott Plan Information [facility] COMMUNITY PLAN [facility] [id number] SP [id number] [email or web address]. [id number] Self [id number] RPR- Needs Payer Match [id number] Self [id number] [place] [id number] SP [id number] Medicaid S [id number] S [id number] Managed Care - [facility] Community Plan P [id number] S [id number] Medicaid S [id number] S [id number] MEDICAID [id number] SP [id number] Managed Care - [facility] Community Plan P [id number] S [id number] Managed Care - [facility] Community Plan P [id number] S [id number] Managed Care - Community Plan [facility] P [id number] S [id number] Managed Care - Community Plan [facility] P [id number] S [id number] Medicaid S [id number] S [id number] [facility] Health Maintenance Organization (HMO) Self Managed Care - Community Plan [facility] P [id number] S [id number] Medicaid S [id number] S [id number] Medicaid Dental O [id number] S [id number] D Managed Care [facility] O [id number] S [id number] Medicaid Dental O [id number] S [id number] Problems, Conditions, and Diagnoses Code Display Name Description Problem Type Effective Dates Data Source(s) F31.81 Bipolar II disorder Bipolar II Disorder Condition 0 05/11/2020 12:00:00 AM EST [facility] ([facility]) F41.1 Generalized anxiety disorder Generalized Anxiety Disor jessica Condition 05/11/2020 12:00:00 AM EST [facility] ([facility]) N93.9 [id number] Abnormal uterine bleeding Problem 02/08/2020 12:00:00 AM EST eCW1 ([facility]) 521.00 Dental caries Dental caries 10/14/2019 11:38:03 AM EDT [facility] F84.0 Autistic disorder Autism Spectrum Disorder Condition 09/09/2019 12:00:00 AM EDT [facility] ([facility]) F31.81 Bipolar II disorder Bipolar II Disorder Condition 0 08/25/2019 12:00:00 AM EDT [facility] ([facility]) R69 Illness, unspecified Illness, unspecified Condition 08/25/2019 12:00:00 AM EDT [facility] ([facility]) V65.8 Person consulting for explanation of exa mination or test findings Person consulting for explanation of examination or test findings 04/20/2019 12:43:21 PM EST [facility] Surgeries/Procedures Procedure Description Date Indications Data Source(s) Extended Individual Psychotherapy - 45 min 05/11/2020 12:00:00 AM EST - 05/11/2020 12:00:00 AM EST [facility] ([facility]) Extended Individual Psychotherapy - 45 min 12:00:00 AM EST [facility] ([facility]) Extended Individual Psychotherapy - 45 min 05/04/2020 12:00:00 AM EST - 05/04/2020 12:00:00 AM EST [facility] ([facility]) Extended Individual Psychotherapy - 45 min 12:00:00 AM EST [facility] ([facility]) [facility] Telemed E/M Lvl 3--Est pt 04/19/2020 12:00:00 AM EST - 04/19/2020 12:00:00 AM EST [facility] ([facility]) Telemed A/O 30" 04/19/2020 12:00:00 AM EST [facility] ([facility]) [facility] Telemed E/M Lvl 3--Est pt 04/19/2020 12:00:[address] [facility] ([facility]) Extended Individual Psychotherapy - 45 min 04/10/2020 12:00:00 AM EST - 04/10/2020 12:00:00 AM EST [facility] ([facility]) Extended Individual Psychotherapy - 45 min 1 12:00:00 AM EST [facility] ([facility]) Extended Individual Psychotherapy - 45 min 03/13/2020 12:00:00 AM EST - 03/13/2020 12:00:00 AM EST [facility] ([facility]) Extended Individual Psychotherapy - 45 min 0 12:00:00 AM EST [facility] ([facility]) [facility] Telemed E/M Lvl 3--Est pt 01/25/2020 12:00:00 AM EDT - 01/25/2020 12:00:00 AM EDT [facility] ([facility]) Telemed A/O 30" 01/25/2020 12:00:00 AM EDT [facility] ([facility]) [facility] Telemed E/M Lvl 3--Est pt 01/25/2020 12:00:00 AM E DT [facility] ([facility]) Extended Individual Psychotherapy - 45 min 01/12/2020 12:00:00 AM EDT - 01/12/2020 12:00:00 AM EDT [facility] ([facility]) Extended Individual Psychotherapy - 45 min 0 12:00:00 AM EDT [facility] ([facility]) Extended Individual Psychotherapy - 45 min 12/28/2019 12:00:00 AM EDT - 12/28/2019 12:00:00 AM EDT [facility] ([facility]) Extended Individual Psychotherapy - 45 min 0 12:00:00 AM EDT [facility] ([facility]) [facility] Telemed E/M Lvl 3--Est pt 09/09/2019 12:00:00 AM EDT - 09/09/2019 12:00:00 AM EDT [facility] ([facility]) Telemed A/O 30" 09/09/2019 12:00:00 AM EDT [facility] ([facility]) [facility] Telemed E/M Lvl 3--Est pt 09/09/2019 12:00:00 AM E DT [facility] ([facility]) TEMPMHCTelemed 30" Psychotherapy 020 12:00:00 AM EDT - 08/25/2019 12:00:00 AM EDT [facility] ([facility]) TEMPMHCTelemed 30" Psychotherapy 08/25/2019 12:00:00 A M EDT [facility] ([facility]) TEMPMHCTelemed 30" Psychotherapy 020 12:00:00 AM EDT - 08/18/2019 12:00:00 AM EDT [facility] ([facility]) TEMPMHCTelemed 30" Psychotherapy 08/18/2019 12:00:00 A M EDT [facility] ([facility]) MHC Telemed E/M Lvl 3--Est pt 07/29/2019 12:00:00 AM EDT - 07/29/2019 12:00:00 AM EDT [facility] ([facility]) Telemed A/O 30" 07/29/2019 12:00:00 AM EDT [facility] ([facility]) [facility] Telemed E/M Lvl 3--Est pt 07/29/2019 12:00:00 AM E DT [facility] ([facility]) Extended Individual Psychotherapy - 45 min 06/29/2019 12:00:00 AM EDT - 06/29/2019 12:00:00 AM EDT [facility] ([facility]) Extended Individual Psychotherapy - 45 min 0 12:00:00 AM EDT [facility] ([facility]) Extended Individual Psychotherapy - 45 min 06/08/2019 12:00:00 AM EDT - 06/08/2019 12:00:00 AM EDT [facility] ([facility]) Extended Individual Psychotherapy - 45 min 0 12:00:00 AM EDT [facility] ([facility]) Extended Individual Psychotherapy - 45 min 05/20/2019 12:00:00 AM EST - 05/20/2019 12:00:00 AM EST [facility] ([facility]) Extended Individual Psychotherapy - 45 min 0 12:00:00 AM EST [facility] ([facility]) OFFICE OUTPATIENT VISIT 10 MINUTES 04/27 12:00:00 AM EST - 04/27/2019 12:00:00 AM EST [facility] ([facility]) OFFICE OUTPATIENT VISIT 10 MINUTES 04/27/2019 12:00:00 AM EST [facility] ([facility]) Extended Individual Psychotherapy - 45 min 04/15/2019 12:00:00 AM EST - 04/15/2019 12:00:00 AM EST [facility] ([facility]) Extended Individual Psychotherapy - 45 min 0 12:00:00 AM EST [facility] ([facility]) Results ID Date Data Source [id number] 05/24/2020 04:40:00 PM EST [facility] Name Value Range Interpretation Code Description Data Zoie rce(s) Supporting Document(s) BHD COVID-19 RT-PCR NASAL SWAB Not Detected Not Detected [facility] This test has received Emergency Use Aut horization (EUA). We willcontinue to follow federal and state requirements for COVID-19reporting. This test was developed and its performance characteristicsdetermined by [facility]. It has not been cleared orapproved by the U.S. Food and Drug Administration but has been givenemergency use authorization. Results should be used in conjunctionwith clinical findings and should not form the sole basis for adiagnosis or treatment decision. Methods: SARS-CoV-2 Multiplex RT-PCRAssayA not detected (negative) test result for this test means that SARS-CoV-2 RNA was not present in the specimen above the limit ofdetection. Laboratory test results should always be considered in thecontext of clinical observations and epidemiological data in making afinal diagnosis and patient management decisions. Results will bereported to government agencies as required. ID Date Data Source [id number] 05/22/2020 12:00:00 AM EST [facility] Name Value Range Interpretation Code Description Data Zoie rce(s) Supporting Document(s) Carestart Rapid COVID Antigen Test Negative [facility] This lab was reported by [facility]. ID Date Data Source [id number] 02/21/2020 10:00:00 AM EST [facility] Name Value Range Interpretation Code Description Data Zoie rce(s) Supporting Document(s) SARS coronavirus 2 RNA [facility] This lab was ordered by [facility] and reported by [facility]. ID Date Data Source HCG, SERUM QUANTITATIVE 02/08/2020 12:00:00 AM EST eCW1 ([facility]) Name Value Range Interpretation Code Description Data Zoie rce(s) Supporting Document(s) < 1.0 eCW1 ([facility]) ID Date Data Source FREE T4 & TSH PANEL 02/08/2020 12:00:00 AM EST eCW1 ([facility]) Name Value Range Interpretation Code Description Data Zoie rce(s) Supporting Document(s) 3.390 0.358-3.740 eCW1 ([facility]) 0.80 0.76-1.46 eCW1 ([facility]) ID Date Data Source CBC - Complete Blood Count 02/08/2020 12:00:00 AM EST eCW1 ( [facility]) Name Value Range Interpretation Code Description Data Zoie rce(s) Supporting Document(s) 4.45 4.00-5.40 eCW1 ([facility]) 6.6 4.0-10.0 eCW1 ([facility]) 13.2 12.0-15.5 eCW1 ([facility]) 29.7 27.0-33.0 eCW1 ([facility]) 39.5 36.0-47.0 eCW1 ([facility]) 88.8 80.0-96.0 eCW1 ([facility]) 12.5 11.5-14.5 eCW1 ([facility]) 275 150-450 eCW1 ([facility]) 33.4 32.0-36.5 eCW1 ([facility]) ID Date Data Source [id number] 11/25/2019 09:51:32 AM EDT [facility] Vital SignsBlood Pressure: 124/72 Patient History Medical History:Anxiety DisorderBack painSurgical History:UnremarkableFamily History:FH DiabetesFH Ovarian Cancerleukemia-great grandfatherAnxiety (Mother, Sister, Maternal Grandmother)Social/Personal History:Smoking History:Patient currently smokes every day. When drinking alcohol. Current Problems: Dental caries (ICD- 521.00) (MLD24-E41.9)Person consulting for explanation of examination or test findings (ICD-V65.8) (BBZ14-X46.2)Needs influenza immunization (ICD-V04.81) (DRB34-H14.3)Endocrine/metabolic screening (JYL10-M56.29)Health Screening (ICD- V70.0) (UMW76-S63.9)Back pain, chronic (ICD-724.5) (USU58-L81.89)Melanocytic nevi, unspecified (WHB66-N57.9)Screening for malignant neoplasm of cervix (LZS14-C06.4)[place] teeth impaction (ICD-520.6) (VAD24-I53.1)Weight gain (abnormal) (ICD-783.1) (QRX31-Q61.5)Iron deficiency (ICD-280.9) (ICD10- E61.1)Preventative health care (ICD-V70.0) (JPL91-K83.00)General Adult Medical Exam WITH Abnormal Findings (over 18) (ICD-V70.0) (URL01-B93.01)Fatigue (ICD- 780.79) (TGU30-Y43.83)Tobacco use (ICD-305.1) (YNK28-X63.0)[place] teeth pain (ICD-520.6) (DQP12-T16.1)HYPERLIPIDEMIA (ICD-272.4) (RZY50-F76.5)ANXIETY DISORDER (ICD-300.00) (TJV84-I58.9)Problem list reviewed during this update.Current Medications: IBUPROFEN 800 MG ORAL TABLET (IBUPROFEN) take one tablet by mouth twice daily as needed 9 take with food); Route: ORALMULTIVITAMIN ADULT ORAL TABLET (MULTIPLE VITAMINS-MINERALS) ; Route: ORALIRON TABLET (FERROUS SULFATE TABS) FISH OIL 1000 MG ORAL CAPSULE (OMEGA-3 FATTY ACIDS) ; Route: ORALDEPAKOTE ER 500 MG ORAL TABLET EXTENDED RELEASE 24 HOUR (DIVALPROEX SODIUM) take one tab po daily; Route: ORALDEPAKOTE ER 250 MG ORAL TABLET EXTENDED RELEASE 24 HOUR (DIVALPROEX SODIUM) take once a day; Route: ORALSER OQUEL 25 MG ORAL TABLET (QUETIAPINE FUMARATE) Take 1 half pill a day; Route: ORALPAXIL 40 MG ORAL TABLET (PAROXETINE HCL) take 3 times a day; Route: ORAL* BUSPIRONE Medication list reviewed during this update.Current Allergies: AMOXICILLIN (AMOXICILLIN) (Critical)Allergy list reviewed during this update.Past Medical History:(reviewed - no changes required) Anxiety DisorderBack pain Dental Chart: Procedures:Type - CDT Code - Description B - (D1110) Prophylaxis, adult (Performed by Sissy Guillermo RDH) B - (D0120) Periodic oral evaluation - established patient (Performed by Karla Chavarria DDS) Chart Alert:Prophy 1 per 6 month periodchild through age 11adult 13+next avail haS AN apt 11/24/2015Exam 1 per 6 month periodnext avail haS AN APPT 11/24/2015Fl2 1 per 6 month periodthrough age 20next availBwx 4 films per 6 month periodnext avail 11/24/2015Panorex 1 every 3 yearsnext avail 11/19/2015FMx next avail 05/24/2017Sealants every 5 yearsage 5-15Preauthorization needed for perio with charting and fmx Chart Notes:eli (Nov 25 2019 10:24AM): Additional PPE requirements due to COVID-19 in the dental setting, N95, surgical mask, hair covering, gown. [facility] with patient. Pt. is having pain in her wisdom teeth. Pt. was [place] [address] Valdez and he will not extract wisdom teeth. Sent a referral to another OS for extraction due to pain.Oral cancer screening-no significant findings. Tempature taken in the lobbyAdult prophy- handscaled and used cavitron in all quads-pt. tolerated well, kiswahili- mint prophy paste, flossOH-Patient brushes once/day and flossing regularlyLT gen marginal biofilm and marginal/introproximal calculus on LA. Light staining due to coffee. Tissues are red, inflammed, and bleeding in sextant 5OHI- Advise to brush 2x a day and floss everyday.Patient is cooperative. NV- 6 month recallSissy Guillermo RDH by eli (11/25/2019 10:24 AM): ; carlitos (Nov 25 2019 10:36AM): [facility]). CC " my wisdom teeth is bothering me. I have consult with Dr. Valdez and he said he cannot remove the teeth. I need to have a second opinion". Exam: no caries detected. OCS: WNL, IO/ EO completed, No significant hard findings upon clinical exam.Additional PPE requirements due to COVID-19 in the dental setting, N95, surgical mask, hair covering, gown and shieldPt was cooperative. OHI given Referral: OS for wisdom teethNV:recallWaSissy gonzalez RDH by carlitos (11/25/2019 10:36 AM): Tooth Notes and Watches:- Tooth 10 Watch: Susan Figueroa by neva (11/10/2012 3:21 PM): - Tooth 11 Watch: Ericka Plunkett by lala (05/14/2018 10:11 AM): - T ooth 13 Watch: Suad West by luke (11/21/2014 11:36 AM): Suad Espana by luke (09/02/2016 9:17 AM): - Tooth 28 Watch: Suad West by luke (09/02/2016 9:16 AM): Assessment & Plan Medications:IBUPROFEN 800 MG ORAL TABLETMULTIVITAMIN ADULT ORAL TABLETIRON TABLETFISH OIL 1000 MG ORAL CAPSULEDEPAKOTE ER 500 MG ORAL TABLET EXTENDED RELEASE 24 HOURDEPAKOTE ER 250 MG ORAL TABLET EXTENDED RELEASE 24 HOURSEROQUEL 25 MG ORAL TABLETPAXIL 40 MG ORAL TABLETBUSPIRONEAllergies:AMOXICILLIN (AMOXICILLIN) (Critical)Orders:Oral Surgery Referral [CPT-03967] Name Value Range Interpretation Code Description Data Zoie rce(s) Supporting Document(s) ID Date Data Source [id number] 10/14/2019 10:33:25 AM EDT [facility] Current Problems: Dental caries (ICD-521 .00) (BUJ74-Q75.9)Person consulting for explanation of examination or test findings (ICD-V65.8) (XAA20-H10.2)Needs influenza immunization (ICD-V04.81) (NMW60-N31.3)Endocrine/metabolic screening (GJZ26-I77.29)Health Screening (ICD-V70.0) (QUP08-W85.9)Back pain, chronic (ICD- 724.5) (OMY45-D68.89)Melanocytic nevi, unspecified (FDG90-W93.9)Screening for malignant neoplasm of cervix (XDZ99-F13.4)[place] teeth impaction (ICD-520.6) (QHX27-M23.1)Weight gain (abnormal) (ICD-783.1) (OFG51-C34.5)Iron deficiency (ICD-280.9) (FMX66-E65.1)Preventative health care (ICD-V70.0) (ICD10- Z00.00)General Adult Medical Exam WITH Abnormal Findings (over 18) (ICD-V70.0) (JYH89-C89.01)Fatigue (ICD-780.79) (TOC29-Z45.83)Tobacco use (ICD-305.1) (ICD10- Z72.0)[place] teeth pain (ICD-520.6) (BZU41-K58.1)HYPERLIPIDEMIA (ICD-272.4) (CTE89-W41.5)ANXIETY DISORDER (ICD-300.00) (OLP12-Q40.9)Problem list reviewed during this update.Current Medications: IBUPROFEN 800 MG ORAL TABLET (IBUPROFEN) take one tablet by mouth twice daily as needed 9 take with food); Route: ORALMULTIVITAMIN ADULT ORAL TABLET (MULTIPLE VITAMINS-MINERALS) ; Route: ORALIRON TABLET (FERROUS SULFATE TABS) FISH OIL 1000 MG ORAL CAPSULE (OMEGA-3 FATTY ACIDS) ; Route: ORALDEPAKOTE ER 500 MG ORAL TABLET EXTENDED RELEASE 24 HOUR (DIVALPROEX SODIUM) take one tab po daily; Route: ORALDEPAKOTE ER 250 MG ORAL TABLET EXTENDED RELEASE 24 HOUR (DIVALPROEX SODIUM) take once a day; Route: ORALSEROQUEL 25 MG ORAL TABLET (QUETIAPINE FUMARATE) Take 1 half pill a day; Route: ORALPAXIL 40 MG ORAL TABLET (PAROXETINE HCL) take 3 times a day; Route: ORAL* BUSPIRONE Medication list reviewed during this update.Current Allergies: AMOXICILLIN (AMOXICILLIN) (Critical)Allergy list reviewed during this update. Dental Chart: Procedures:Type - CDT Code - Description B - (D2330) Resin, one surface, anterior on Tooth # 8 on Tooth Surface F (Performed by Karla Chavarria DDS) Chart Alert:Prophy 1 per 6 month periodchild through age 12adult 13+next avail haS AN apt 11/24/2015Exam 1 per 6 month periodnext avail haS AN APPT 11/24/2015Fl2 1 per 6 month periodthrough age 20next availBwx 4 films per 6 month periodnext avail 11/24/2015Panorex 1 every 3 yearsnext avail 11/19/2015FMx next avail 05/24/2017Sealants every 5 yearsage 5-15Preauthorization needed for perio with charting and fmx Chart Notes:carlitos (Oct 14 2019 11:37AM): [facility] (N/C Per Pt.) Additional PPE requirements due to COVID-19 in the dental setting, N95, surgical mask, hair covering, gown CC: none. HurriCaine (Watermelon) Topical, Anterior Infiltrati on #8 1carp. Septocaine (Articaine HCL 4%) X 1:200.000 epi. Operative: # 8-F Etch placed and rinsed, Futurabond placed and light cured and B2 Packable Voco GrandiOso composite materail placed and light cured. Excavated with High Speed, Slow Speed and Spoon. Occlusion checked and polished.No complications. POI given to pt. Assisted by ROD. Pt was cooperative. NV: Recall Karla Chavarria DDS by carlitos (10/14/2019 11:37 AM): Tooth Notes and Watches:- Tooth 10 Watch: mfl ShimonmjJean Pierre reynoldsSusan by neva (11/10/2012 3:21 PM): - Tooth 11 Watch: Ericka Plunkett by lala (05/14/2018 10:11 AM): - Tooth 13 Watch: Suad West by luke (11/21/2014 11:36 AM): Suad Espana by luke (09/02/2016 9:17 AM): - Tooth 28 Watch: Suad West by luke (09/02/2016 9:16 AM): Assessment & Plan Problems:Added: Dental caries (ICD-521.00) (ICD10- K02.9)Medications:IBUPROFEN 800 MG ORAL TABLETMULTIVITAMIN ADULT ORAL TABLETIRON TABLETFISH OIL 1000 MG ORAL CAPSULEDEPAKOTE ER 500 MG ORAL TABLET EXTENDED R ELEASE 24 HOURDEPAKOTE ER 250 MG ORAL TABLET EXTENDED RELEASE 24 HOURSEROQUEL 25 MG ORAL TABLETPAXIL 40 MG ORAL TABLETBUSPIRONEAllergies:AMOXICILLIN (AMOXICILLIN) (Critical) Name Value Range Interpretation Code Description Data Zoie rce(s) Supporting Document(s) ID Date Data Source [id number] 05/11/2019 09:01:15 AM [facility] Patient History Medical History:Anxiety DisorderBack painFamily History:FH DiabetesFH Ovarian Cancerleukemia-great grandfatherAnxiety (Mother, Sister, Maternal Grandmother)Social/Personal History: Smoking Status: former smokerCurrent Problems: Person consulting for explanation of examination or test findings (ICD-V65.8) (SBJ05-V94.2)Needs influenza immunization (ICD-V04.81) (QEY46-N35.3)Endocrine/metabolic screening (TBZ08-O66.29)Health Screening (ICD- V70.0) (QEF45-N80.9)Back pain, chronic (ICD-724.5) (ZHW38-G69.89)Melanocytic nevi, unspecified (KEZ48-H40.9)Screening for malignant neoplasm of cervix (SSV13-Q71.4)[place] teeth impaction (ICD-520.6) (RAF80-S45.1)Weight gain (abnormal) (ICD-783.1) (OJE06-C47.5)Iron deficiency (ICD-280.9) (ICD10- E61.1)Preventative health care (ICD-V70.0) (VST30-V87.00)General Adult Medical Exam WITH Abnormal Findings (over 18) (ICD-V70.0) (FLU25-Q29.01)Fatigue (ICD- 780.79) (VBN60-T66.83)Tobacco use (ICD-305.1) (YTX52-D70.0)[place] teeth pain (ICD-520.6) (NKM46-Z70.1)HYPERLIPIDEMIA (ICD-272.4) (ZKK35-M84.5)ANXIETY DISORDER (ICD-300.00) (OYT64-C97.9)Problem list reviewed during this update.Current Medications: IBUPROFEN 800 MG ORAL TABLET (IBUPROFEN) take one tablet by mouth twice daily as needed 9 take with food); Route: ORALMULTIVITAMIN ADULT ORAL TABLET (MULTIPLE VITAMINS-MINERALS) ; Route: ORALIRON TABLET (FERROUS SULFATE TABS) FISH OIL 1000 MG ORAL CAPSULE (OMEGA-3 FATTY ACIDS) ; Route: ORALDEPAKOTE ER 500 MG ORAL TABLET EXTENDED RELEASE 24 HOUR (DIVALPROEX SODIUM) take one tab po daily; Route: ORALDEPAKOTE ER 250 MG ORAL TABLET EXTENDED RELEASE 24 HOUR (DIVALPROEX SODIUM) take once a day; Route: ORALSEROQUEL 25 MG ORAL TABLET (QUETIAPINE FUMARATE) Take 1 half pill a day; Route: ORALPAXIL 40 MG ORAL TABLET (PAROXETINE HCL) take 3 times a day; Route: ORAL* BUSPIRONE Medication list reviewed during this update.Current Allergies: AMOXICILLIN (AMOXICILLIN) (Critical)Allergy list reviewed during this update.Past Medical History:(reviewed - no changes required) Anxiety DisorderBack pain Dental Chart: Procedures:Type - CDT Code - Description B - (D0120) Periodic oral evaluation - established patient (Performed by Karla Chavarria DDS) B - (D0274) Bitewings, 4 radiographic images (Performed by Eun Espinoza RDH) B - (D1110) Prophylaxis, adult (Performed by Eun Espinoza RDH) Treatments:Type - CDT Code - Description T - (D2330) Resin, one surface, anterior on Tooth # 8 on Tooth Surface F (Performed by Eun Espinoza RDH) Existing:Type - CDT Code - Description[E] Decay On #8 Surface F Chart Alert:Prophy 1 per 6 month periodchild through age 12adult 13+next avail haS AN apt 11/24/2015Exam 1 per 6 month periodnext avail haS AN APPT 11/24/2015Fl2 1 per 6 month periodthrough age 20next availBwx 4 films per 6 month periodnext avail 11/24/2015Panorex 1 every 3 yearsnext avail 11/19/2015FMx next avail 05/24/2017Sealants every 5 yearsage 5-15Preauthorization needed for perio with charting and fmx Chart Notes:carlitos (May 11 2019 9:38AM): [facility]). CC: none. Reviewed Xrays. Exam: caries detected. OCS: WNL, IO/ EO completed, No significant hard findings upon clinical exam Pt was cooperative.OHI givenReferral: N/ANV: # 8Eun Espinoza RDH by carlitos (05/11/2019 9:38 AM): ; sraso (May 11 2019 9:35AM): [facility] with patient- No changes. No problems or concerns today. Adult prophy- handscaled, kiswahili- mint prophy paste, floss, 4 BW'sOH-Patient brushes twice/day and flossing regularlyLT gen marginal biofilm and marginal/introproximal calculus on LA. Marginal tissue is slightly inflamed with light bleeding on LA.OHI- Advise to brush 2x a day and floss everyday. Went over brushing and flossing timo in the upper anterior. Patient is cooperative. NV- 6 month recall/fillingRaso DIAMONDEun by justice (05/11/2019 9:35 AM): Tooth Notes and Watches:- Tooth 10 Watch: l Susan Marx by neva (11/10/2012 3:21 PM): - Tooth 11 Watch: Ericka Plunkett by lala (05/14/2018 10:11 AM): - Tooth 13 Watch: Suad West by luke (11/21/2014 11:36 AM): Suad Espana by luke (09/02/2016 9:17 AM): - Tooth 28 Watch: Suad West by luke (09/02/2016 9:16 AM): Assessment & Plan Medications:IBUPROFEN 800 MG ORAL TABLETMULTIVITAMIN ADULT ORAL TABLETIRON TABLETFISH OIL 1000 MG ORAL CAPSULEDEPAKOTE ER 500 MG ORAL TABLET EXTENDED RELEASE 24 HOURDEPAKOTE ER 250 MG ORAL TABLET EXTENDED RELEASE 24 HOURSEROQUEL 25 MG ORAL TABLETPAXIL 40 MG ORAL TABLETBUSPIRONEAllergies:AMOXICILLIN (AMOXICILLIN) (Critical) Name Value Range Interpretation Code Description Data Zoie rce(s) Supporting Document(s) ID Date Data Source [id number] 04/20/2019 11:54:40 AM [facility] Measurements & CalculationsHeight: 66 inches (5 ft. 6 in.) 167.64 cm Weight: 199 pounds 90.45 kg Body Mass Index (BMI): 32.24BMI Interpretation: ObeseBody Surface Area (BSA): 2.00Weight Management Education Done (Nutrition/Physical Activity)Vital SignsTemperature: 99.3F 37.39C oral Pulse Rate: 71 beats/minuteRespiratory Rate: 16 respirations/minuteBlood Pressure: 123/82 left arm sitting automaticO2 Saturation: 98% room airVital Signs performed by: Jaylene Esteban MA, April 20, 2019 11:55 AMInitial Intake Information from: patientRoom #: 14Infectious Disease- Travel Have you or your sexual partner travelled outside of the country recently? NoSmoking, Tobacco or Smoke Exposure StatusSmoke Status: former smokerTobacco Use: NoPassive Smoke Exposure: NoMenstrual HistoryLast Menstrual Period (LMP): 04/18/2019Healthcare HistorySince your last office visit...Have you been admitt ed to the hospital? No - [facility] August 30- 2017Have you been to an emergency room (ER) or urgent care clinic? NoHave you seen another healthcare provider? Yes - [facility]? Yes - in house (09/05/17)Dental exam date reported today: 08/2015Intake performed by: Jaylene Esteban MA, April 20, 2019 11:57 AMRate Your HealthIn general, would you say your health is? Very GoodPain AssessmentAre you currently having any pain which... You would like your provider to address? No Affects your activity level? NoDepression Screening - PHQ-2Over the last two weeks, have you... Had little interest or pleasure in doing things? Not at all Been feeling down, depressed, or hopeless? Not at all PHQ-2 Score: 0Anxiety Screening - HUMBERTO-2Over the last two weeks, have you been... Feeling nervous, anxious, or on edge? Not at all Unable to stop or control worrying? Not at all HUMBERTO-2 Score: 0Screening, Brief Intervention, & Referral to Treatment (SBIRT)Pre- Screening Questions How many times have you have 4 or more drinks in a day? 0How many times have you used an illegal drug or used a prescription medication for a non-medical reason? 0Performed by: Jaylene Esteban MA, April 20, 2019 11:57 AMPatient History Medical History:Anxiety DisorderBack painSurgical History:UnremarkableFamily History:FH DiabetesFH Ovarian Cancerleukemia-great grandfatherAnxiety (Mother, Sister, Maternal Grandmother)Social/Personal History:Smoking History:Patient currently smokes every day. When drinking alcohol. Smoking Status: former smokerChief Complaintfollow-up visitHistory of Present Illness (HPI)28 yo female here today for follow up visit and review of lab results. Pt states healthy diet and physical activities. Pt denies smoking. Pt denies alcoholism. Pt denies illicit drug use. Pt denies any new concernsHPI performed by: Marisol Londono [facility], April 20, 2019 12:34 PMTransitions of Care InboundProblem ReviewProblem List was reviewed and/or updated during this visit.Medication Reconciliation & ReviewMedication List was reviewed and/or updated during this visit, including review of any [id number] medications, herbal therapies, and/or supplements.Allergy ReviewAllergy List was reviewed and/or updated during this visit.Adult Preventive CareProvider Calculated and Reviewed all Clinical Protocols for patient today. Labs/Meds/Other Counseling-Nutrition and Physical Activity:BMI Interpretation: Obese (04/20/2019) Counseling: Done (04/20/2019) Physical Activity: Done (04/20/2019)Review of Systems General: Denies loss of appetite, chills, dizziness, fatigue, fever, continued fever, headache, feeling ill, sweats, night sweats, sleep disturbances, weight loss. Eyes: Denies blurring of vision, double vision, irritation, discharge, vision loss, eye pain, eye swelling, droopy eyelid, sensitivity to light, redness, itching. Ears/Nose/Throat: Denies earache, ear discharge, ringing in ears, decreased hearing, nasal congestion, nosebleeds, runny nose, sore throat, hoarseness, difficulty swallowing, dry mouth, tooth pain, bleeding gums, swollen glands. Cardiovascular: Denies chest pain, palpitations, feeling faint, trouble breathing w/exertion, SOB upon lying down, SOB at night, peripheral edema, elevated blood pressure, decreased heart rate. Respiratory: Denies cough, difficulty breathing, shortness of breath, excessive sputum, coughing up blood, wheezing, chest pain. Breast: Denies discoloration, tenderness, breast changes, breast lump, nipple discharge. Gastrointestinal: Denies nausea, vomiting, bleeding, burning, itching, irritation, cramps, diarrhea, constipation. Genitourinary: Denies urinary incontinence, pain with urination, burning with urination, urinary frequency, urinary hesitancy, urinary urgency, urinary urgency at night, incomplete emptying, blood in urine, pelvic pain. Musculoskeletal: Denies back pain, joint pain, leg pain, joint swelling, body aches, muscle aches, muscle cramps, muscle weakness, stiffness, recent injury. Skin: Denies rash, hives, redness, itching, dryness, nail changes, suspicious lesions, athlete's foot, rash on palms, rash on bottom of feet. Neurologic: Denies muscle impairment, weakness, numbness/tingling, seizures, slurred speech, feeling faint, tremors, vertigo, paralysis on one side, paralysis on both sides. Psychiatric: Denies depression, anxiety, memory loss, mental disturbance, suicidal ideation, homicidal ideation, hallucinations, paranoia, feeling stressed, hearing voices. Endocrine: Denies cold intolerance, heat intolerance, excessive thirst, excessive hunger, excessive urination, weight loss, weight gain. Physical ExamGeneral Appearance: well nourished, well hydrated, no acute distressEyes, External: conjunctivae and lids normal, EOMIRespiratory, Auscultation: clear to auscultation bilaterally; no rales, rhonchi, or wheezesRespiratory, Effort: no intercostal retractions or use of accessory musclesCardiovascular, Auscultation: S1, S2 audible; no murmur, rub, or gallop; RRRPeripheral Circulation: no clubbing, cyanosis, edema, or varicositiesAbdomen: soft, non-tender, no masses, bowel sounds normalGait & Station: normalSkin, Inspection: no rashes, lesions, or ulcerationsOrientation: oriented to time, place, and personMood & Affect: no depression, anxiety, or agitationJudgment & Insight: intactCare Management Plan Transitions of CareInboundRate Your HealthIn general, would you say your health is? Very GoodAssessment & Plan Problems:Added: Person consulting for explanation of examination or test findings (ICD-V65.8) (HJB92-I98.2) Assessment: Instructions: We havve reviewed your lab results with you today. Unremarkable except jaxon thyroid levels slightly elevated. LDL also elevated at 135. please start lifestyle changes to include healthy diet and physical activities. Please try to limit processed foods.Please try to maintain adequate fluid intake.Assessed:HYPERLIPIDEMIA (ICD-272.4) (HPU30-I75.5) Assessment: Instructions: Please conntinue lifestyle changes to include healthy diet and physical activities.Please try to avoid processed foods.Health Screening (ICD- V70.0) (FSI49-T69.9) Assessment: Pt states had recentlly started new harmonal control. will monitor TSH for now and recheck in 3 months. Pt denies s/s of hypothyroidism. Instructions: We have reviewed your lab results with you today.Patient Instructions/Care Plan: HYPERLIPIDEMIA: Please conntinue lifestyle changes to include healthy diet and physical activities.Please try to avoid processed foods.Person consulting for explanation of examination or test findings: We havve reviewed your lab results with you today. Unremarkable except jaxon thyroid levels slightly elevated. LDL also elevated at 135. please start lifestyle changes to include healthy diet and physical activities. Please try to limit processed foods.Please try to maintain adequate fluid intake.Health Screening: We have reviewed your lab results with you today. Plan developed in collaboration with patient and/or familyMedications:IBUPROFEN 800 MG ORAL TABLETMULTIVITAMIN ADULT ORAL TABLETIRON TABLETFISH OIL 1000 MG ORAL CAPSULEDEPAKOTE ER 500 MG ORAL TABLET EXTENDED RELEASE 24 HOURDEPAKOTE ER 250 MG ORAL TABLET EXTENDED RELEASE 24 HOURSEROQUEL 25 MG ORAL TABLETPAXIL 40 MG ORAL TABLETBUSPIRONEAllergies:AMOXICILLIN (AMOXICILLIN) (Critical)Orders:LIPID PANEL [CPT-39052] TSH [CPT-19938] T-4 free [CPT-88220] Adult - Ofc Vst, EST, Level III [CPT-19420] Follow-Up Return to clinic: 3 months for follow up. Additional Follow-Up: recheck Lipids and thyroid levels in three months. Clinical Visit Summary Completed Name Value Range Interpretation Code Description Data Zoie rce(s) Supporting Document(s) ID Date Data Source [id number] 04/15/2019 08:30:00 AM [facility] Name Value Range Interpretation Code Description Data Zoie rce(s) Supporting Document(s) BG FASTING 104 mg/dL 70-100 [facility] T4, FREE 1.01 ng/dL 0.76-1.46 [facility] TSH 4.150 microintl units/mL 0.358-3.740 H [facility] VIT D25 TOT 53.2 ng/mL 30.0-100.0 N [facility] ID Date Data Source [id number] 04/15/2019 08:30:00 AM [facility] Name Value Range Interpretation Code Description Data Zoie rce(s) Supporting Document(s) HGBA1C 5.2 % N [facility] ID Date Data Source [id number] 04/15/2019 08:30:00 AM [facility] Name Value Range Interpretation Code Description Data Zoie rce(s) Supporting Document(s) HCT 39.7 % 36.0-47.0 N [facility] HGB 12.7 g/dL 12.0-15.5 N [facility] MCH 32.0 G/DL pg 32.0-36.5 [facility] MCHC 28.9 PG % 27.0-33.0 [facility] PLATELETS 267 10 10*3/mm3 150-450 N [facility] RBC 4.39 10 10*6/mm3 4.00-5.40 [facility] RDW 12.2 % 11.5-14.5 [facility] WBC TOTAL 5.8 4.0-10.0 N [facility] ID Date Data Source [id number] 04/15/2019 08:30:00 AM EST [facility] Name Value Range Interpretation Code Description Data Zoie rce(s) Supporting Document(s) BG FASTING 104 mg/dL 70-100 [facility] T4, FREE 1.01 ng/dL 0.76-1.46 N [facility] TSH 4.150 microintl units/mL 0.358-3.740 H [facility] VIT D25 TOT 53.2 ng/mL 30.0-100.0 N [facility] ID Date Data Source [id number] 04/15/2019 08:30:00 AM EST [facility] Name Value Range Interpretation Code Description Data Zoie rce(s) Supporting Document(s) HGBA1C 5.2 % N [facility] ID Date Data Source [id number] 04/15/2019 08:28:18 AM EST [facility] Labs In-House Blood TestsDate/Time Colle cted: April 15, 2019 8:28 AMTest Result Reference Range Normal ValueComments: blood draw done in offcie done in the right as pt tolerated well . Doug Moon MA, April 15, 2019 8:28 AMAssessment & Plan Orders:[id number] Vst-Est Level I [CPT-18590] [id number] - Venipuncture [CPT-64904] Name Value Range Interpretation Code Description Data Zoie rce(s) Supporting Document(s) Procedure Social History Code Duration Value Status Description Data Source(s ) Smoking 05/11/2020 12:00:00 AM EST Current some day smoker com pleted Current some day smoker [facility] Smoking 05/04/2020 12:00:00 AM EST Current some day smoker com pleted Current some day smoker [facility] Smoking 04/19/2020 12:00:00 AM EST Current some day smoker com pleted Current some day smoker [facility] ([facility]) Smoking 04/10/2020 12:00:00 AM EST Current some day smoker com pleted Current some day smoker [facility] ([facility]) Smoking 03/13/2020 12:00:00 AM EST Current some day smoker com pleted Current some day smoker [facility] ([facility]) Smoking 02/08/2020 12:00:00 AM EST Former Smoker completed Former Smoker eCW1 ([facility]) Smoking 01/25/2020 12:00:00 AM EDT Current some day smoker com pleted Current some day smoker [facility] ([facility]) Smoking 01/12/2020 12:00:00 AM EDT Current some day smoker com pleted Current some day smoker [facility] ([facility]) Smoking 12/28/2019 12:00:00 AM EDT Current some day smoker com pleted Current some day smoker [facility] ([facility]) Smoking 09/23/2019 12:00:00 AM EDT Former Smoker completed Former Smoker eCW1 ([facility]) Smoking 09/09/2019 12:00:00 AM EDT Current some day smoker com pleted Current some day smoker [facility] ([facility]) Smoking 08/25/2019 12:00:00 AM EDT Current some day smoker com pleted Current some day smoker [facility] ([facility]) Smoking 08/18/2019 12:00:00 AM EDT Current some day smoker com pleted Current some day smoker [facility] ([facility]) Smoking 07/29/2019 12:00:00 AM EDT Current some day smoker com pleted Current some day smoker [facility] ([facility]) Smoking 06/29/2019 12:00:00 AM EDT Current some day smoker com pleted Current some day smoker [facility] ([facility]) Smoking 06/08/2019 12:00:00 AM EDT Current some day smoker com pleted Current some day smoker [facility] ([facility]) Smoking 05/20/2019 12:00:00 AM EST Current some day smoker com pleted Current some day smoker [facility] ([facility]) Smoking 04/27/2019 12:00:00 AM EST Current some day smoker com pleted Current some day smoker [facility] ([facility]) Smoking 04/15/2019 12:00:00 AM EST Current some day smoker com pleted Current some day smoker [facility] ([facility]) Vital Signs ID Date Data Source UNK Name Value Range Interpretation Code Description Data Source(s) Diastolic blood pressure 0 mm[Hg] Normal (applies to non-numeric results) 0 mm[Hg[facility] Systolic blood pressure 0 mm[Hg] Normal (applies t o non-numeric results) 0 mm[Hg] [facility] ([facility]) Body mass index (BMI) [Ratio] 0.00 kg/m2 No rmal (applies to non-numeric results) 0.00 kg/m2 [facility] Body weight Measured 0.00 lbs Normal (applies to n on-numeric results) 0.00 lbs [facility] ([facility]) Body height 0.00 in Normal (applies to non-numeric resu lts) 0.00 in [facility] ([facility]) Diastolic blood pressure 68 mm[Hg] 68 mm[Hg] eCW1 ([facility]) Systolic blood pressure 122 mm[Hg] 122 mm[Hg] e CW1 ([facility]) Body mass index (BMI) [Ratio] 35.18 kg/m2 35.18 kg/m2 eCW1 ([facility]) Body height 66 [in_i] 66 [in_i] eCW1 ([facility]) Body weight 218 [lb_av] 218 [lb_av] eCW1 ([facility]) Body mass index (BMI) [Ratio] 0.00 kg/m2 No rmal (applies to non-numeric results) 0.00 kg/m2 [facility] ([facility]) Body weight Measured 0.00 lbs Normal (applies to n on-numeric results) 0.00 lbs [facility] ([facility]) Body height 0.00 in Normal (applies to non-numeric resu lts) 0.00 in [facility] ([facility]) Diastolic blood pressure 0 mm[Hg] Normal (applies to non-numeric results) 0 mm[Hg] [facility] ([facility]) Systolic blood pressure 0 mm[Hg] Normal (applies t o non-numeric results) 0 mm[Hg] [facility] ([facility]) Diastolic blood pressure 0 mm[Hg] Normal (applies to non-numeric results) 0 mm[Hg] [facility] ([facility]) Systolic blood pressure 0 mm[Hg] Normal (applies t o non-numeric results) 0 mm[Hg] [facility] ([facility]) Body mass index (BMI) [Ratio] 0.00 kg/m2 No rmal (applies to non-numeric results) 0.00 kg/m2 [facility] ([facility]) Body weight Measured 0.00 lbs Normal (applies to n on-numeric results) 0.00 lbs [facility] ([facility]) Body height 0.00 in Normal (applies to non-numeric resu lts) 0.00 in [facility] ([facility]) Diastolic blood pressure 0 mm[Hg] Normal (applies to non-numeric results) 0 mm[Hg] [facility] ([facility]) Systolic blood pressure 0 mm[Hg] Normal (applies t o non-numeric results) 0 mm[Hg] [facility] ([facility]) Body mass index (BMI) [Ratio] 0.00 kg/m2 No rmal (applies to non-numeric results) 0.00 kg/m2 [facility] ([facility]) Body weight Measured 0.00 lbs Normal (applies to n on-numeric results) 0.00 lbs [facility] ([facility]) Body height 0.00 in Normal (applies to non-numeric resu lts) 0.00 in [facility] ([facility]) Diastolic blood pressure 0 mm[Hg] Normal (applies to non-numeric results) 0 mm[Hg] [facility] ([facility]) Systolic blood pressure 0 mm[Hg] Normal (applies t o non-numeric results) 0 mm[Hg] [facility] ([facility]) Body mass index (BMI) [Ratio] 0.00 kg/m2 No rmal (applies to non-numeric results) 0.00 kg/m2 [facility] ([facility]) Body weight Measured 0.00 lbs Normal (applies to n on-numeric results) 0.00 lbs [facility] ([facility]) Body height 0.00 in Normal (applies to non-numeric resu lts) 0.00 in [facility] ([facility]) Patient Treatment Plan of Care Planned Activity Planned Date Details Description Data Source (s) Sprintec 28 0.25-35 MG-MCG 01/20/2020 12:00:00 AM EDT eCW1 ([facility]) Sprintec 28 0.25-35 MG-MCG 01/20/2020 12:00:00 AM EDT eCW1 ([facility])
--- OUTSIDE RECORDS SUMMARY | 2020-05-26 09:25 | CCD ---
Author Author [facility] Organization [facility] Address Unknown Phone Unavailable Care Team Providers Care Box Fabricator Name Role Phone Can Ortez MD Unavailable Unavailable Can Ortez MD Unavailable Unavailable Can rOtez MD Unavailable Unavailable Can Ortez MD Unavailable [...] Unavailable Unavailable Dario, C Kendall Unavailable Unavailable Stowell, C Kendall Unavailable Unavailable Stowell, C Kendall Unavailable Unavailable Dario, C Knedall Unavailable Unavailable Stowell, C Kendall Unavailable Unavailable Stowell, C Kendall Unavailable Unavailable Dario, C Kendall Unavailable Unavailable Crowley, K Pauline PMH-WIRING MECHANIC Unavailable Unavailable Cece, K Pauline PMH-WIRING MECHANIC Unavailable Unavailable Crowley, K Pauline PMH-WIRING MECHANIC Unavailable Unavailable Crowley, K Pauline PMH-WIRING MECHANIC Unavailable Unavailable Crowley, K Pauline PMH-WIRING MECHANIC Unavailable Unavailable Crowley, K Pauline PMH-WIRING MECHANIC Unavailable Unavailable KEVIN, T MARS AUTOMOBILE ASSEMBLY SUPERVISOR Unavailable Unavailable KEVIN, T MARS AUTOMOBILE ASSEMBLY SUPERVISOR Unavailable Unavailable KEVIN, T MARS AUTOMOBILE ASSEMBLY SUPERVISOR Unavailable Unavailable KEVIN, T MARS AUTOMOBILE ASSEMBLY SUPERVISOR Unavailable Unavailable KEVIN, T MARS AUTOMOBILE ASSEMBLY SUPERVISOR Unavailable Unavailable KEIVN, T MARS AUTOMOBILE ASSEMBLY SUPERVISOR Unavailable Unavailable KEVIN, T MARS AUTOMOBILE ASSEMBLY SUPERVISOR Unavailable Unavailable KEVIN, T MARS AUTOMOBILE ASSEMBLY SUPERVISOR Unavailable Unavailable KEVIN, T MARS AUTOMOBILE ASSEMBLY SUPERVISOR Unavailable Unavailable KEVIN, T MARS AUTOMOBILE ASSEMBLY SUPERVISOR Unavailable Unavailable KEVIN, T MARS AUTOMOBILE ASSEMBLY SUPERVISOR Unavailable Unavailable KEVIN, T MARS AUTOMOBILE ASSEMBLY SUPERVISOR Unavailable Unavailable KEVIN, T MARS AUTOMOBILE ASSEMBLY SUPERVISOR Unavailable Unavailable KEVIN, T MARS AUTOMOBILE ASSEMBLY SUPERVISOR Unavailable Unavailable KEVIN, T MARS AUTOMOBILE ASSEMBLY SUPERVISOR Unavailable Unavailable KEVIN, T MARS AUTOMOBILE ASSEMBLY SUPERVISOR Unavailable Unavailable KEVIN, T MARS AUTOMOBILE ASSEMBLY SUPERVISOR Unavailable Unavailable KEVIN, T MARS AUTOMOBILE ASSEMBLY SUPERVISOR Unavailable Unavailable KEVIN, T MARS AUTOMOBILE ASSEMBLY SUPERVISOR Unavailable Unavailable KEVIN, T MARS AUTOMOBILE ASSEMBLY SUPERVISOR Unavailable Unavailable KEVIN, T MARS AUTOMOBILE ASSEMBLY SUPERVISOR Unavailable Unavailable KEVIN, T MARS AUTOMOBILE ASSEMBLY SUPERVISOR Unavailable Unavailable KEVIN, T MARS AUTOMOBILE ASSEMBLY SUPERVISOR Unavailable Unavailable KEVIN, T MARS AUTOMOBILE ASSEMBLY SUPERVISOR Unavailable Unavailable KEVIN, T MARS AUTOMOBILE ASSEMBLY SUPERVISOR Unavailable Unavailable KEVIN, T MARS AUTOMOBILE ASSEMBLY SUPERVISOR Unavailable Unavailable KEVIN, T MARS AUTOMOBILE ASSEMBLY SUPERVISOR Unavailable Unavailable KEVIN, T MARS AUTOMOBILE ASSEMBLY SUPERVISOR Unavailable Unavailable KEVIN, T MARS AUTOMOBILE ASSEMBLY SUPERVISOR Unavailable Unavailable KEVIN, T MARS AUTOMOBILE ASSEMBLY SUPERVISOR Unavailable Unavailable KEVIN, T MARS AUTOMOBILE ASSEMBLY SUPERVISOR Unavailable Unavailable KEVIN, T MARS AUTOMOBILE ASSEMBLY SUPERVISOR Unavailable Unavailable KEVIN, T MARS AUTOMOBILE ASSEMBLY SUPERVISOR Unavailable Unavailable KEVIN, T MARS AUTOMOBILE ASSEMBLY SUPERVISOR Unavailable Unavailable KEVIN, T MARS AUTOMOBILE ASSEMBLY SUPERVISOR Unavailable Unavailable KEVIN, T MARS AUTOMOBILE ASSEMBLY SUPERVISOR Unavailable Unavailable KEVIN, T MARS AUTOMOBILE ASSEMBLY SUPERVISOR Unavailable Unavailable KEVIN, T MARS AUTOMOBILE ASSEMBLY SUPERVISOR Unavailable Unavailable GoutremBetsy cota Unavailable Bry, Marisol AUTOMOBILE ASSEMBLY SUPERVISOR AUTOMOBILE ASSEMBLY SUPERVISOR Unavailable Unavailable Bry, A Marisol AUTOMOBILE ASSEMBLY SUPERVISOR Unavailable Unavailable Bry, A Marisol AUTOMOBILE ASSEMBLY SUPERVISOR Unavailable Unavailable Bry, A Marisol AUTOMOBILE ASSEMBLY SUPERVISOR Unavailable Unavailable Bry, A Marisol AUTOMOBILE ASSEMBLY SUPERVISOR Unavailable Unavailable Bry, A Marisol AUTOMOBILE ASSEMBLY SUPERVISOR Unavailable Unavailable Bry, A Marisol AUTOMOBILE ASSEMBLY SUPERVISOR Unavailable Unavailable Bry, A Marisol AUTOMOBILE ASSEMBLY SUPERVISOR Unavailable Unavailable Bry, A Marisol AUTOMOBILE ASSEMBLY SUPERVISOR Unavailable Unavailable Bry, A Marisol AUTOMOBILE ASSEMBLY SUPERVISOR Unavailable Unavailable Bry, A Marisol AUTOMOBILE ASSEMBLY SUPERVISOR Unavailable Unavailable Bry, A Marisol AUTOMOBILE ASSEMBLY SUPERVISOR Unavailable Unavailable Bry, A Marisol AUTOMOBILE ASSEMBLY SUPERVISOR Unavailable Unavailable Bry, A Marisol AUTOMOBILE ASSEMBLY SUPERVISOR Unavailable Unavailable Bry, A Marisol AUTOMOBILE ASSEMBLY SUPERVISOR Unavailable Unavailable Bry, A Marisol AUTOMOBILE ASSEMBLY SUPERVISOR Unavailable Unavailable Bry, A Marisol AUTOMOBILE ASSEMBLY SUPERVISOR Unavailable Unavailable Bry, A Marisol AUTOMOBILE ASSEMBLY SUPERVISOR Unavailable Unavailable Bry, A Marisol AUTOMOBILE ASSEMBLY SUPERVISOR Unavailable Unavailable Bry, A Marisol AUTOMOBILE ASSEMBLY SUPERVISOR Unavailable Unavailable Bry, A Marisol AUTOMOBILE ASSEMBLY SUPERVISOR Unavailable Unavailable Bry, A Marisol AUTOMOBILE ASSEMBLY SUPERVISOR Unavailable Unavailable Bry, A Marisol AUTOMOBILE ASSEMBLY SUPERVISOR Unavailable Unavailable Bry, A Marisol AUTOMOBILE ASSEMBLY SUPERVISOR Unavailable Unavailable Bry, A Marisol AUTOMOBILE ASSEMBLY SUPERVISOR Unavailable Unavailable Bry, A Marisol AUTOMOBILE ASSEMBLY SUPERVISOR Unavailable Unavailable Bry, A Marisol AUTOMOBILE ASSEMBLY SUPERVISOR Unavailable Unavailable Bry, A Marisol AUTOMOBILE ASSEMBLY SUPERVISOR Unavailable Unavailable Bry, A Marisol AUTOMOBILE ASSEMBLY SUPERVISOR Unavailable Unavailable Re-disclosure Warning The records that [...] is protected by Article 27-F of the [facility] Public Health law. If you continue you may have access to information: Regarding HIV / AIDS; Provided by facilities licensed or operated by the [facility] Office of Mental Health; or Provided by the [facility] Office for People With Developmental Disabilities. If such information is present, then the following [facility] mandated warning applies: This information has been [...] law may result in a fine or halfway sentence or both. A general authorization for the release of medical or other information is NOT sufficient authorization for further disc losure. Allergies and Adverse Reactions Type Description Substance Reaction Status Data Source(s ) Propensity to adverse reactions to substance amoxicillin Amoxicillin 500 MG Oral Capsule urticaria (hives) Active [facility] ([facility] Family History Family Member Name Family Member Gender Family Member Status Date o f Status Description Data Source(s) Unknown Unknown Problem [facility] ([facility], ) Unknown Unknown Problem MEDENT ([facility], ) Encounters Encounter Providers Location Date Indications Data Source(s ) Outpatient Attender: MARS MORALES 05/02 01:54:43 PM EST - 05/22/2020 03:25:49 PM EST [facility] ([facility] ) Extended Individual Psychotherapy - 45 min [facility]11/2020 08:45:00 AM EST - 05/11/2020 08:45:00 AM EST [facility] ([facility]) Attender: Betsy Augustin 05/11/2020 12:00:0 0 AM EST [facility] ([facility]) Extended Individual Psychotherapy - 45 min [facility] 08:00:00 AM EST - 05/04/2020 08:00:00 AM EST [facility] ([facility]) Attender: Betsy Augustin 05/04/2020 12:00:0 0 AM EST [facility] ([facility]) Outpatient Attender: Pauline SHIELDS [facility] 04/19/2020 09:00:00 AM EST - 04/19/2020 09:00:00 AM EST [facility] ([facility]) Attender: Pauline SHIELDS 04/19/2020 12: 00:00 AM EST [facility] ([facility]) Extended Individual Psychotherapy - 45 min Attender: Mirela Augustin [facility] 04/10/2020 10:00:00 AM EST - 04/10/2020 10:00:00 AM EST [facility] ([facility]) Attender: Betsy Augustin 04/10/2020 12:00:0 0 AM EST [facility] ([facility]) Extended Individual Psychotherapy - 45 min Attender: Mirela ca Demetria [facility] 03/13/2020 10:00:00 AM EST - 03/13/2020 10:00:00 AM EST [facility] ([facility]) Attender: Betsy Augustin 03/13/2020 12:00:0 0 AM EST [facility] ([facility]) Outpatient [facility] [facility] [address] 02/08/2020 12:00:00 AM EST eCW1 ([facility]) Outpatient Attender: CARMEN LEE 01/27/2020 12:42:01 P M EDT [facility] Outpatient Attender: Pauline SHIELDS [facility] 01/25/2020 10:00:00 AM EDT - 01/25/2020 10:00:00 AM EDT [facility] ([facility]) Attender: Pauline SHIELDS 01/25/2020 12: 00:00 AM EDT [facility] ([facility]) [place] [address] [facility] [address] 01/19/2020 12:00:00 AM EDT eCW1 ([facility]) Outpatient Attender: CARMEN LEE 01/17/2020 10:26:03 A M EDT [facility] Extended Individual Psychotherapy - 45 min Att[facility]: [facility]/12/2020 11:00:00 AM EDT - 01/12/2020 11:00:00 AM EDT [facility] ([facility] Attender: Betsy Marshallkayleigh 01/12/2020 12:00:0 0 AM EDT [facility] ([facility]) Extended Individual Psychotherapy - 45 min Attender: Mirela ott [facility] 12/28/2019 04:00:00 AM EDT - 12/28/2019 04:00:00 AM EDT [facility] ([facility]) Attender: Betsy Demetria 12/28/2019 12:00:0 0 AM EDT [facility] ([facility]) Outpatient Attender: CARMEN LEE 12/27/2019 03:51:01 P M EDT [facility] Outpatient Attender: CARMEN MORALES 11/26/2019 10:22:00 A M EDT [facility] Outpatient Attender: Marisol LEE 11/25/2019 02:3 1:01 PM EDT [facility] Outpatient Attender: Marisol LEE 11/25/2019 10:3 7:00 AM EDT [facility] Outpatient Attender: CARMEN LEE 11/25/2019 10:17:01 A M EDT [facility] Outpatient Attender: CARMEN LEE 10/14/2019 11:40:02 A M EDT [facility] Outpatient Attender: Marisol LEE 10/14/2019 11:3 9:01 AM EDT [facility] Outpatient Attender: Marisol LEE 10/14/2019 10:4 9:02 AM EDT [facility] Outpatient Attender: Marisol MORRISONP FP 10/14/2019 10:4 8:01 AM EDT [facility] Outpatient Attender: CARMEN Londono [facility] 10/14/2019 10:37:00 A M EDT [facility] Outpatient Attender: CARMEN Londono [facility] 10/13/2019 11:43:00 A M EDT [facility] Outpatient Attender: CARMEN Londono [facility] 10/13/2019 11:42:00 A M EDT [facility] Outpatient Attender: Pauline Zhao [facility] 09/09/2019 09:00:00 AM EDT - 09/09/2019 09:00:00 AM EDT [facility] ([facility]) Attender: Pauline RIVEROKELI 09/09/2019 12: 00:00 AM EDT [facility] ([facility]) Outpatient Attender: CARMEN Londono [facility] 09/06/2019 04:16:00 P M EDT [facility] Outpatient Attender: CARMEN Londono [facility] 09/06/2019 02:04:01 P M EDT [facility] TEMPMHCTelemed 30" Psychotherapy Attender: Betsy devries [facility] 08/25/2019 08:45:00 AM EDT - 08/25/2019 08:45:00 AM EDT [facility] ([facility]) Attender: Betsy Augustin 08/25/2019 12:00:0 0 AM EDT [facility] ([facility]) TEMPMHCTelemed 30" Psychotherapy Attender: [facility]ets[facility] 08/18/2019 10:45:00 AM EDT - 08/18/2019 10:45:00 AM EDT [facility] ([facility]) Attender: Betsy Augustin 08/18/2019 12:00:0 0 AM EDT [facility] ([facility]) Outpatient [facility]: [facility] 07/29/2019 09:00:00 AM EDT - 07/29/2019 09:00:00 AM EDT [facility] ([facility]) Attender: Pauline Zhao PM-WIRING MECHANIC 07/29/2019 12: 00:00 AM EDT [facility] ([facility]) Outpatient Attender: CARMEN MORALES FP 07/12/2019 09:52:00 A M EDT [facility] Extended Individual Psychotherapy - 45 min Attender: [facility] 06/29/2019 10:00:00 AM EDT - 06/29/2019 10:00:00 AM EDT [facility] ([facility]) Attender: Betsy Demetria 06/29/2019 12:00:0 0 AM EDT [facility] ([facility]) Outpatient Attender: CARMEN MORALES FP 06/15/2019 09:42:01 A M EDT [facility] Extended Individual Psychotherapy - 45 min Attender: [facility] 06/08/2019 10:00:00 AM EDT - 06/08/2019 10:00:00 AM EDT [facility] ([facility]) Attender: Betsy Demetria 06/08/2019 12:00:0 0 AM EDT [facility] ([facility]) Extended Individual Psychotherapy - 45 min [facility] 11:45:00 AM EST - 05/20/2019 11:45:00 AM EST [facility] ([facility]) Attender: Betsy Demetria 05/20/2019 12:00:0 0 AM EST [facility] ([facility]) Outpatient Attender: Marisol MORALES FP 05/11/2019 09:3 9:01 AM EST [facility] Outpatient Attender: CARMEN LEE 05/11/2019 09:03:01 A M [facility] Outpatient Attender: CARMEN LEE 05/11/2019 09:02:00 A M [facility] Outpatient Attender: Kendall Bishop [facility] 0 04/27/2019 10:30:00 AM EST - 04/27/2019 10:30:00 AM EST [facility]: Kendall Bishop 04/27/2019 12:00:00 AM EST [facility] Attender: Marisol MORALES FP 04/21/2019 06:0 3:01 AM [facility] Outpatient Attender: CARMEN MORALES FP 04/20/2019 12:44:00 P M [facility] Outpatient Attender: CARMEN MORALES FP 04/20/2019 12:31:02 P M [facility] Outpatient Attender: Marisol MORALES FP 04/20/2019 12:3 0:07 PM [facility] Outpatient Attender: Marisol MORALES FP 04/20/2019 12:3 0:05 PM [facility] Outpatient Attender: CARMEN MORALES FP 04/20/2019 12:30:01 P M [facility] Outpatient Attender: CARMEN MORRISONP FP 04/20/2019 12:30:01 P M [facility] Outpatient Attender: CARMEN MORRISONP FP 04/20/2019 12:04:01 P M [facility] Outpatient Attender: CARMEN MORALES FP 04/20/2019 11:51:02 A M [facility] Outpatient Attender: CARMEN MORALES FP 04/20/2019 11:51:01 A M [facility] Outpatient Attender: CARMEN MORALES FP 04/20/2019 11:20:02 A M [facility] Outpatient Attender: CARMEN MORALES FP 04/20/2019 11:20:01 A M [facility] Outpatient Attender: Marisol MORALES FP 04/20/2019 11:1 8:59 AM [facility] Outpatient Attender: Marisol MORALES FP 04/18/2019 04:2 0:59 PM [facility] Outpatient Attender: CARMEN MORALES FP 04/15/2019 03:21:01 P M [facility] Outpatient Attender: CARMEN MORALES FP 04/15/2019 03:17:01 P M [facility] Outpatient Attender: Justice Ortez MD FP 04/15/2019 03:10:01 PM [facility] Extended Individual Psychotherapy - 45 min [facility]15/[facility] 11:00:00 AM EST - 04/15/2019 11:00:00 AM EST [facility] ([facility]) Outpatient Attender: Justice Ortez MD 04/15/2019 08:22:42 AM [facility] Attender: Betsy Demetria 04/15/2019 12:00:0 0 AM EST [facility] ([facility]) Outpatient Attender: Justice Ortez MD 04/14/2019 09:01:01 PM [facility] Functional Status Medications Medication Brand Name Start Date Product Form Dose Route Admi nistrative Instructions Pharmacy Instructions Status Indications Reaction Description Data Source(s) buspirone hydrochloride 15 MG Oral Tablet buspirone 2019 12:00:00 AM EDT 15 mg by mouth completed [id number] buspirone by mouth C382 88 01/25/2020 twice a day 15 mg tablet 00033 [id number] Pauline Venkatesh [id number] [facility] ([facility]) buspirone hydrochloride 15 MG Oral Tablet buspirone 2019 12:00:00 AM EDT 15 mg by mouth completed 212020 buspirone by mouth C382 88 01/25/2020 twice a day 15 mg tablet 91813 [id number] Pauline Venkatesh ow [id number] [facility]ental [facility] ([facility]) Sprintec 28 0.25-35 MG-MCG Sprintec 28 0.25-35 MG-MCG 2019 12:00:00 AM EDT 1.0 {tablet} active Sprintec 28 0.25-35 MG-MCG eCW1 ([facility]) Sprintec 28 0.25-35 MG-MCG Sprintec 28 0.25-35 MG-MCG 2019 12:00:00 AM EDT 1.0 {tablet} active Sprintec 28 0.25-35 MG-MCG eCW1 ([facility]) Divalproex Sodium 500 MG Delayed Release Oral Tablet divalpr oex 07/29/2019 12:00:00 AM EDT 500 mg by mouth completed [id number] divalproex by mouth [id number] 07/29/2019 every night 500 mg tablet,delayed release (DR/EC) 78912 [id number] Pauline Zhao [id number] [facility] ([facility]) Divalproex Sodium 500 MG Delayed Release Oral Tablet divalpr oex 07/29/2019 12:00:00 AM EDT 500 mg by mouth completed [id number] divalproex by mouth [id number] 07/29/2019 every night 500 mg tablet,delayed release (DR/EC) 47449 [id number] Pauline Zhao [id number] [facility] ([facility]) buspirone hydrochloride 15 MG Oral Tablet buspirone 2019 12:00:00 AM EDT 15 mg by mouth completed [id number] buspirone by mouth C382 88 07/29/2019 three times a day 15 mg tablet 92704 [id number] Jay Zhao [id number] [facility] ([facility]) Divalproex Sodium 500 MG Delayed Release Oral Tablet divalpr oex 07/29/2019 12:00:00 AM EDT 500 mg by mouth completed [id number] divalproex by mouth [id number] 07/29/2019 every night 500 mg tablet,delayed release (DR/EC) 62720 651304 [id number] Pauline Zhao [id number] [facility] ([facility]) buspirone hydrochloride 15 MG Oral Tablet buspirone 2019 12:00:00 AM EDT 15 mg by mouth completed 019416 buspirone by mouth C382 88 07/29/2019 01/25/2020 three times a day 15 mg tablet 05536 [id number] Leidy Sheth [id number] Nurse Practitioner [facility] ([facility]) paroxetine HCl paroxetine HCl 07/29/2019 12:00:00 AM EDT 30 mg by mouth completed [id number] paroxetine HCl by mouth [id number] 07/29/2019 on ce a day 30 mg tablet 91276 981146 [id number] Pauline Zhao [id number] Psychiatric/Mental Health [facility] ([facility]) paroxetine HCl paroxetine HCl 07/29/2019 12:00:00 AM EDT 30 mg by mouth completed [id number] paroxetine HCl by mouth P16306 07/29/2019 on ce a day 30 mg tablet 95357 394914 [id number] Pauline Zhao [id number] Psych[facility]Mental Health [facility] ([facility]) paroxetine HCl paroxetine HCl 07/29/2019 12:00:00 AM EDT 30 mg by mouth completed [id number] paroxetine HCl by mouth [id number] 07/29/2019 on ce a day 30 mg tablet 74959 [id number] Pauline Zhao [id number] Psych[facility]ental Health [facility] ([facility]) Divalproex Sodium 250 MG Delayed Release Oral Tablet [Depako te] Depakote 04/27/2019 12:00:00 AM EST 250 mg by mouth completed [id number] Depakote by mouth [id number] 04/27/2019 at bedtime 250 mg tablet,de layed release (DR/EC) 46001 887659 [id number] Pauline Zhao [id number] P sychiatric/Mental Health [facility] ([facility]) Divalproex Sodium 250 MG Delayed Release Oral Tablet [Depako te] Depakote 04/27/2019 12:00:00 AM EST 250 mg by mouth completed [id number] Depakote by mouth [id number] 04/27/2019 at bedtime 250 mg tablet,de layed release (DR/EC) 65778 520326 [id number] Pauline Zhao [id number] P sychiatric/Mental Health [facility] ([facility]) Paroxetine 30 MG Oral Tablet [Paxil] Paxil 02/04/2019 12:00:00 A M EST 30 mg by mouth completed [id number] Paxil by mouth [id number] 02/04/2019 07/26/2019 at bedtime 30 30 mg tablet 35466 [id number] Kendall Bishop [id number] [facility] ([facility]) Paroxetine 30 MG Oral Tablet [Paxil] Paxil 02/04/2019 12:00:00 A M EST 30 mg by mouth completed [id number] Paxil by mouth [id number] 02/04/2019 05/05/2019 at bedtime 30 30 mg tablet 67018 [id number] Kendall Bishop [id number] [facility] ([facility]) Paroxetine 30 MG Oral Tablet [Paxil] Paxil 02/04/2019 12:00:00 A M EST 30 mg by mouth completed Paxil by mouth [id number] 02/04/2019 05/05/2019 at bedtime 30 30 mg tablet 78757 [id number] [id number] Kendall Bishop [id number] [facility] ([facility]) buspirone hydrochloride 15 MG Oral Tablet buspirone 2018 12:00:00 AM EST 15 mg by mouth completed [id number] buspirone by mouth C382 88 02/04/2019 05/05/2019 three times a day 30 15 mg tablet 63145 [id number] Kendall Bishop [id number] [facility] ([facility]) Paroxetine 30 MG Oral Tablet [Paxil] Paxil 02/04/2019 12:00:00 A M EST 30 mg by mouth completed [id number] Paxil by mouth [id number] 02/04/2019 07/26/2019 at bedtime 30 30 mg tablet 40172 813710 [id number] Kendall Bishop [id number] [facility] ([facility]) Divalproex Sodium 500 MG Delayed Release Oral Tablet [Depako te] Depakote 10/23/2018 12:00:00 AM EDT 500 mg by mouth completed [id number] Depakote by mouth [id number] 10/23/2018 05/14/2019 at bedtime 30 500 mg tablet ,delayed release (DR/EC) 91144 376787 [id number] Kendall Bishop [id number] [facility] ([facility]) Divalproex Sodium 500 MG Delayed Release Oral Tablet [Depako te] Depakote 10/23/2018 12:00:00 AM EDT 500 mg by mouth completed [id number] Depakote by mouth [id number] 10/23/2018 04/27/2019 at bedtime 30 500 mg tablet ,delayed release (DR/EC) 21417 [id number] Kendall Bishop [id number] [facility] ([facility]) Insurance Providers Payer name Policy type / Coverage type Policy ID Covered alliance party ID Covered alliance party's relationship to scott Policy Scott Plan Information [facility] [id number] SP [id number] [place] [employer] [id number] Self [id number] RPR- Needs Payer Match [id number] Self [id number] [place] [id number] SP [id number] Medicaid S [id number] S [id number] Managed Care - [facility] Community Plan P [id number] S [id number] Medicaid S [id number] S [id number] MEDICAID [id number] SP [id number] Managed Care - [facility] Community Plan P [id number] S [id number] Managed Care - [facility] Community Plan P [id number] S [id number] Managed Care - Community Plan [facility] P [id number] S [id number] Managed Care - Community Plan [facility] P [id number] S [id number] Medicaid S [id number] S [id number] [facility] Health Maintenance Organization (HMO) Self Managed Care - Community Plan [facility] P [id number] S [id number] Medicaid S [id number] S [id number] Medicaid Dental O [id number] S [id number] D Managed Care [facility] O [id number] S [id number] Medicaid Dental O [id number] S [id number] Problems, Conditions, and Diagnoses Code Display Name Description Problem Type Effective Dates Data Source(s) F31.81 Bipolar II disorder Bipolar II Disorder Condition 0 05/11/2020 12:00:00 AM EST [facility] ([facility]) F41.1 Generalized anxiety disorder Generalized Anxiety Disor jessica Condition 05/11/2020 12:00:00 AM EST [facility] ([facility]) N93.9 [id number] Abnormal uterine bleeding Problem 02/08/2020 12:00:00 AM EST eCW1 ([facility]) 521.00 Dental caries Dental caries 10/14/2019 11:38:03 AM EDT [facility] F84.0 Autistic disorder Autism Spectrum Disorder Condition 09/09/2019 12:00:00 AM EDT [facility] ([facility]) F31.81 Bipolar II disorder Bipolar II Disorder Condition 0 08/25/2019 12:00:00 AM EDT [facility] ([facility]) R69 Illness, unspecified Illness, unspecified Condition 08/25/2019 12:00:00 AM EDT [facility] ([facility]) V65.8 Person consulting for explanation of exa mination or test findings Person consulting for explanation of examination or test findings 04/20/2019 12:43:21 PM EST [facility] Surgeries/Procedures Procedure Description Date Indications Data Source(s) Extended Individual Psychotherapy - 45 min 05/11/2020 12:00:00 AM EST - 05/11/2020 12:00:00 AM EST [facility] ([facility]) Extended Individual Psychotherapy - 45 min 12:00:00 AM EST [facility] ([facility]) Extended Individual Psychotherapy - 45 min 05/04/2020 12:00:00 AM EST - 05/04/2020 12:00:00 AM EST [facility] ([facility]) Extended Individual Psychotherapy - 45 min 12:00:00 AM EST [facility] ([facility]) [facility] Telemed E/M Lvl 3--Est pt 04/19/2020 12:00:00 AM EST - 04/19/2020 12:00:00 AM EST [facility] ([facility]) Telemed A/O 30" 04/19/2020 12:00:00 AM EST [facility] ([facility]) [facility] Telemed E/M Lvl 3--Est pt 04/19/2020 12:00:[address] [facility] ([facility]) Extended Individual Psychotherapy - 45 min 04/10/2020 12:00:00 AM EST - 04/10/2020 12:00:00 AM EST [facility] ([facility]) Extended Individual Psychotherapy - 45 min 1 12:00:00 AM EST [facility] ([facility]) Extended Individual Psychotherapy - 45 min 03/13/2020 12:00:00 AM EST - 03/13/2020 12:00:00 AM EST [facility] ([facility]) Extended Individual Psychotherapy - 45 min 0 12:00:00 AM EST [facility] ([facility]) [facility] Telemed E/M Lvl 3--Est pt 01/25/2020 12:00:00 AM EDT - 01/25/2020 12:00:00 AM EDT [facility] ([facility]) Telemed A/O 30" 01/25/2020 12:00:00 AM EDT [facility] ([facility]) MHC Telemed E/M Lvl 3--Est pt 01/25/2020 12:00:00 AM E DT [facility] ([facility]) Extended Individual Psychotherapy - 45 min 01/12/2020 12:00:00 AM EDT - 01/12/2020 12:00:00 AM EDT [facility] ([facility]) Extended Individual Psychotherapy - 45 min 0 12:00:00 AM EDT [facility] ([facility]) Extended Individual Psychotherapy - 45 min 12/28/2019 12:00:00 AM EDT - 12/28/2019 12:00:00 AM EDT [facility] ([facility]) Extended Individual Psychotherapy - 45 min 0 12:00:00 AM EDT [facility] ([facility]) MHC Telemed E/M Lvl 3--Est pt 09/09/2019 12:00:00 AM EDT - 09/09/2019 12:00:00 AM EDT [facility] ([facility]) Telemed A/O 30" 09/09/2019 12:00:00 AM EDT [facility] ([facility]) MHC Telemed E/M Lvl 3--Est pt 09/09/2019 12:00:00 AM E DT [facility] ([facility]) TEMPMHCTelemed 30" Psychotherapy 020 12:00:00 AM EDT - 08/25/2019 12:00:00 AM EDT [facility] ([facility]) TEMPMHCTelemed 30" Psychotherapy 08/25/2019 12:00:00 A M EDT [facility] ([facility]) TEMPMHCTelemed 30" Psychotherapy 020 12:00:00 AM EDT - 08/18/2019 12:00:00 AM EDT [facility] ([facility]) TEMPMHCTelemed 30" Psychotherapy 08/18/2019 12:00:00 A M EDT [facility] ([facility]) MHC Telemed E/M Lvl 3--Est pt 07/29/2019 12:00:00 AM EDT - 07/29/2019 12:00:00 AM EDT [facility] ([facility]) Telemed A/O 30" 07/29/2019 12:00:00 AM EDT [facility] ([facility]) MHC Telemed E/M Lvl 3--Est pt 07/29/2019 12:00:00 AM E DT [facility] ([facility]) Extended Individual Psychotherapy - 45 min 06/29/2019 12:00:00 AM EDT - 06/29/2019 12:00:00 AM EDT [facility] ([facility]) Extended Individual Psychotherapy - 45 min 0 12:00:00 AM EDT [facility] ([facility]) Extended Individual Psychotherapy - 45 min 06/08/2019 12:00:00 AM EDT - 06/08/2019 12:00:00 AM EDT [facility] ([facility]) Extended Individual Psychotherapy - 45 min 0 12:00:00 AM EDT [facility] ([facility]) Extended Individual Psychotherapy - 45 min 05/20/2019 12:00:00 AM EST - 05/20/2019 12:00:00 AM EST [facility] ([facility]) Extended Individual Psychotherapy - 45 min 0 12:00:00 AM EST [facility] ([facility]) OFFICE OUTPATIENT VISIT 10 MINUTES 04/27 12:00:00 AM EST - 04/27/2019 12:00:00 AM EST [facility] ([facility]) OFFICE OUTPATIENT VISIT 10 MINUTES 04/27/2019 12:00:00 AM EST [facility] ([facility]) Extended Individual Psychotherapy - 45 min 04/15/2019 12:00:00 AM EST - 04/15/2019 12:00:00 AM EST [facility] ([facility]) Extended Individual Psychotherapy - 45 min 0 12:00:00 AM EST [facility] ([facility]) Results ID Date Data Source [id number] 05/24/2020 04:40:00 PM EST [facility] Name Value Range Interpretation Code Description Data Zoie rce(s) Supporting Document(s) BHD COVID-19 RT-PCR NASAL SWAB Not Detected Not Detected [facility] This test has received Emergency Use Aut horization (EUA). We willcontinue to follow federal and state requirements for COVID-19reporting. This test was developed and its performance characteristicsdetermined by [facility]. It has not been cleared orapproved by [...] agencies as required. ID Date Data Source [id number] 05/22/2020 12:00:00 AM EST [facility] Name Value Range Interpretation Code Description Data Zoie rce(s) Supporting Document(s) Carestart Rapid COVID Antigen Test Negative [facility] This lab was reported by [facility]. ID Date Data Source [id number] 02/21/2020 10:00:00 AM EST [facility] Name Value Range Interpretation Code Description Data Zoie rce(s) Supporting Document(s) SARS coronavirus 2 RNA [facility] This lab was ordered by [facility] and reported by [facility]. ID Date Data Source HCG, SERUM QUANTITATIVE 02/08/2020 12:00:00 AM EST eCW1 ([facility]) Name Value Range Interpretation Code Description Data Zoie rce(s) Supporting Document(s) < 1.0 eCW1 ([facility]) ID Date Data Source FREE T4 & TSH PANEL 02/08/2020 12:00:00 AM EST eCW1 ([facility]) Name Value Range Interpretation Code Description Data Zoie rce(s) Supporting Document(s) 3.390 0.358-3.740 eCW1 ([facility]) 0.80 0.76-1.46 eCW1 ([facility]) ID Date Data Source CBC - Complete Blood Count 02/08/2020 12:00:00 AM EST eCW1 ( [facility]) Name Value Range Interpretation Code Description Data Zoie rce(s) Supporting Document(s) 4.45 4.00-5.40 eCW1 ([facility]) 6.6 4.0-10.0 eCW1 ([facility]) 13.2 12.0-15.5 eCW1 ([facility]) 29.7 27.0-33.0 eCW1 ([facility]) 39.5 36.0-47.0 eCW1 ([facility]) 88.8 80.0-96.0 eCW1 ([facility]) 12.5 11.5-14.5 eCW1 ([facility]) 275 150-450 eCW1 ([facility]) 33.4 32.0-36.5 eCW1 ([facility]) ID Date Data Source [id number] 11/25/2019 09:51:32 AM EDT [facility] Vital SignsBlood Pressure: 124/72 Patient History Medical History:Anxiety DisorderBack painSurgical History:UnremarkableFamily History:FH DiabetesFH Ovarian Cancerleukemia-great grandfatherAnxiety (Mother, Sister, Maternal Grandmother)Social/Personal History:Smoking History:Patient currently smokes every day. When drinking alcohol. Current Problems: Dental caries (ICD- 521.00) (AWL82-B86.9)Person consulting for explanation of examination or test findings (ICD-V65.8) (SAU33-M61.2)Needs influenza immunization (ICD-V04.81) (ZQK65-Q44.3)Endocrine/metabolic screening (MGF20-C06.29)Health Screening (ICD- V70.0) (MHQ42-Q43.9)Back pain, chronic (ICD-724.5) (PNU89-M98.89)Melanocytic nevi, unspecified (CMT36-E69.9)Screening for malignant neoplasm of cervix (NKS43-S15.4)[place] teeth impaction (ICD-520.6) (NSX98-Z23.1)Weight gain (abnormal) (ICD-783.1) (AHW63-X25.5)Iron deficiency (ICD-280.9) (ICD10- E61.1)Preventative health care (ICD-V70.0) (IIF80-Q11.00)General Adult Medical Exam WITH Abnormal Findings (over 18) (ICD-V70.0) (TZH06-B19.01)Fatigue (ICD- 780.79) (QBJ13-G16.83)Tobacco use (ICD-305.1) (OGZ54-C60.0)[place] teeth pain (ICD-520.6) (IXT78-T26.1)HYPERLIPIDEMIA (ICD-272.4) (PHX39-K21.5)ANXIETY DISORDER (ICD-300.00) (WOF19-X30.9)Problem list reviewed during this update.Current Medications: IBUPROFEN [...] setting, N95, surgical mask, hair covering, gown. [facility] with patient. Pt. is having pain in her wisdom teeth. Pt. was [place] [address] Valdez and he will not extract wisdom teeth. Sent a referral to another OS for extraction due to pain.Oral cancer screening-no significant findings. Tempature taken in the lobbyAdult prophy- handscaled and used cavitron in all quads-pt. tolerated well, lithuanian- mint prophy paste, flossOH-Patient brushes once/day and flossing regularlyLT gen marginal biofilm and marginal/introproximal calculus on LA. Light staining due to coffee. Tissues are red, inflammed, and bleeding in sextant 5OHI- Advise to brush 2x a day and floss everyday.Patient is cooperative. NV- 6 month recallSissy Guillermo RDH by eli (11/25/2019 10:24 AM): ; carlitos (Nov 25 2019 10:36AM): [facility](-). CC " my wisdom teeth is bothering [...] Notes and Watches:- Tooth 10 Watch: Susan Fiugeroa by neva (11/10/2012 3:21 PM): - Tooth [...] MG ORAL TABLETBUSPIRONEAllergies:AMOXICILLIN (AMOXICILLIN) (Critical)Orders:Oral Surgery Referral [CPT-58746] Name Value Range Interpretation Code Description Data Zoie rce(s) Supporting Document(s) ID Date Data Source [id number] 10/14/2019 10:33:25 AM EDT [facility] Current Problems: Dental caries (ICD-521 .00) (MZQ13-C68.9)Person consulting for explanation of examination or test findings (ICD-V65.8) (JJB96-H61.2)Needs influenza immunization (ICD-V04.81) (VBM04-F11.3)Endocrine/metabolic screening (IZL71-Z00.29)Health Screening (ICD-V70.0) (EUG93-G47.9)Back pain, chronic (ICD- 724.5) (KSU42-I05.89)Melanocytic nevi, unspecified (NCI25-L99.9)Screening for malignant neoplasm of cervix (QTN55-T35.4)[place] teeth impaction (ICD-520.6) (MRB54-G15.1)Weight gain (abnormal) (ICD-783.1) (DKE12-M10.5)Iron deficiency (ICD-280.9) (BDT24-S49.1)Preventative health care (ICD-V70.0) (ICD10- Z00.00)General Adult Medical Exam WITH Abnormal Findings (over 18) (ICD-V70.0) (KEZ80-E40.01)Fatigue (ICD-780.79) (YFM41-I65.83)Tobacco use (ICD-305.1) (ICD10- Z72.0)[place] teeth pain (ICD-520.6) (FDR14-Y79.1)HYPERLIPIDEMIA (ICD-272.4) (HZA71-I48.5)ANXIETY DISORDER (ICD-300.00) (VCB63-T01.9)Problem list reviewed during this update.Current Medications: IBUPROFEN [...] rce(s) Supporting Document(s) ID Date Data Source [id number] 05/11/2019 09:01:15 AM [facility] Patient History Medical History:Anxiety DisorderBack painFamily History:FH DiabetesFH Ovarian Cancerleukemia-great grandfatherAnxiety (Mother, Sister, Maternal Grandmother)Social/Personal History: Smoking Status: former smokerCurrent Problems: Person consulting for explanation of examination or test findings (ICD-V65.8) (RPG88-Y38.2)Needs influenza immunization (ICD-V04.81) (UBF76-L27.3)Endocrine/metabolic screening (LVG80-K35.29)Health Screening (ICD- V70.0) (XMU72-G38.9)Back pain, chronic (ICD-724.5) (HOE17-G87.89)Melanocytic nevi, unspecified (MHA67-H66.9)Screening for malignant neoplasm of cervix (RQG40-R87.4)[place] teeth impaction (ICD-520.6) (QEJ17-Q45.1)Weight gain (abnormal) (ICD-783.1) (MZC53-Y42.5)Iron deficiency (ICD-280.9) (ICD10- E61.1)Preventative health care (ICD-V70.0) (TEC96-P17.00)General Adult Medical Exam WITH Abnormal Findings (over 18) (ICD-V70.0) (VCS02-B17.01)Fatigue (ICD- 780.79) (CAR64-K77.83)Tobacco use (ICD-305.1) (NSB80-Y78.0)[place] teeth pain (ICD-520.6) (IRP14-H24.1)HYPERLIPIDEMIA (ICD-272.4) (LNW11-U37.5)ANXIETY DISORDER (ICD-300.00) (MZK37-F12.9)Problem list reviewed during this update.Current Medications: IBUPROFEN [...] fmx Chart Notes:carlitos (May 11 2019 9:38AM): [facility](-). CC: none. Reviewed Xrays. Exam: caries detected. OCS: WNL, IO/ EO completed, No significant hard findings upon clinical exam Pt was cooperative.OHI givenReferral: N/ANV: # 8Eun Espinoza RDH by carlitos (05/11/2019 9:38 AM): ; sraso (May 11 2019 9:35AM): [facility] with patient- No changes. No problems or concerns today. Adult prophy- handscaled, lithuanian- mint prophy paste, floss, 4 BW'sOH-Patient brushes twice/day and flossing regularlyLT gen marginal biofilm and marginal/introproximal calculus on LA. Marginal tissue is slightly inflamed with light bleeding on LA.OHI- Advise to brush 2x a day and floss everyday. Went over brushing and flossing timo in the upper anterior. Patient is cooperative. NV- 6 month recall/fillingRaso DIMAONDEun by justice (05/11/2019 9:35 AM): Tooth Notes and Watches:- Tooth 10 Watch: l Susan Marx by neva (11/10/2012 3:21 PM): - Tooth 11 Watch: Ericka Plunkett by lala (05/14/2018 10:11 AM): - Tooth 13 Watch: Suad West by luek (11/21/2014 11:36 AM): Suad Espana by luke [...] rce(s) Supporting Document(s) ID Date Data Source [id number] 04/20/2019 11:54:40 AM [facility] Measurements & CalculationsHeight: 66 inches (5 [...] admitt ed to the hospital? No - [facility] August 30- 2017Have you been to an emergency room (ER) or urgent care clinic? NoHave you seen another healthcare provider? Yes - [facility] a dentist? Yes - in [...] any new concernsHPI performed by: Marisol Londono [facility], April 20, 2019 12:34 PMTransitions of Care InboundProblem ReviewProblem List was reviewed and/or updated during this visit.Medication Reconciliation & ReviewMedication List was reviewed and/or updated during this visit, including review of any vsxe-qna-ylnkjqa medications, herbal therapies, and/or supplements.Allergy ReviewAllergy List [...] explanation of examination or test findings (ICD-V65.8) (JRQ64-S26.2) Assessment: Instructions: We havve reviewed your lab results with you today. Unremarkable except jaxon thyroid levels slightly elevated. LDL also elevated at 135. please start lifestyle changes to include healthy diet and physical activities. Please try to limit processed foods.Please try to maintain adequate fluid intake.Assessed:HYPERLIPIDEMIA (ICD-272.4) (LXK73-K52.5) Assessment: Instructions: Please conntinue lifestyle changes to include healthy diet and physical activities.Please try to avoid processed foods.Health Screening (ICD- V70.0) (SLD60-R82.9) Assessment: Pt states had recentlly started new [...] 40 MG ORAL TABLETBUSPIRONEAllergies:AMOXICILLIN (AMOXICILLIN) (Critical)Orders:LIPID PANEL [CPT-41314] TSH [CPT-94014] T-4 free [CPT-87968] Adult - Ofc Vst, EST, Level III [CPT-21053] Follow-Up Return to clinic: 3 months for follow up. Additional Follow-Up: recheck Lipids and thyroid levels in three months. Clinical Visit Summary Completed Name Value Range Interpretation Code Description Data Zoie rce(s) Supporting Document(s) ID Date Data Source [id number] 04/15/2019 08:30:00 AM [facility] Name Value Range Interpretation Code Description Data Zoie rce(s) Supporting Document(s) BG FASTING 104 mg/dL 70-100 [facility] T4, FREE 1.01 ng/dL 0.76-1.46 [facility] TSH 4.150 microintl units/mL 0.358-3.740 H [facility] VIT D25 TOT 53.2 ng/mL 30.0-100.0 N [facility] ID Date Data Source [id number] 04/15/2019 08:30:00 AM [facility] Name Value Range Interpretation Code Description Data Zoie rce(s) Supporting Document(s) HGBA1C 5.2 % N [facility] ID Date Data Source [id number] 04/15/2019 08:30:00 AM [facility] Name Value Range Interpretation Code Description Data Zoie rce(s) Supporting Document(s) HCT 39.7 % 36.0-47.0 [facility] HGB 12.7 g/dL 12.0-15.5 [facility] MCH 32.0 G/DL pg 32.0-36.5 [facility]C 28.9 PG % 27.0-33.0 [facility] PLATELETS 267 10 10*3/mm3 150-450 N [facility] RBC 4.39 10 10*6/mm3 4.00-5.40 [facility] RDW 12.2 % 11.5-14.5 [facility] WBC TOTAL 5.8 4.0-10.0 N [facility] ID Date Data Source [id number] 04/15/2019 08:30:00 AM EST [facility] Name Value Range Interpretation Code Description Data Zoie rce(s) Supporting Document(s) BG FASTING 104 mg/dL 70-100 [facility] T4, FREE 1.01 ng/dL 0.76-1.46 [facility] TSH 4.150 microintl units/mL 0.358-3.740 H [facility] VIT D25 TOT 53.2 ng/mL 30.0-100.0 N [facility] ID Date Data Source [id number] 04/15/2019 08:30:00 AM EST [facility] Name Value Range Interpretation Code Description Data Zoie rce(s) Supporting Document(s) HGBA1C 5.2 % N [facility] ID Date Data Source [id number] 04/15/2019 08:28:18 AM EST [facility] Labs In-House Blood TestsDate/Time Colle cted: April 15, 2019 8:28 AMTest Result Reference Range Normal ValueComments: blood draw done in offcie done in the right as pt tolerated well . Doug Moon MA, April 15, 2019 8:28 AMAssessment & Plan Orders:[id number] Vst-Est Level I [CPT-35866] [id number] - Venipuncture [CPT-48425] Name Value Range Interpretation Code Description Data Zoie rce(s) Supporting Document(s) Procedure Social History Code Duration Value Status Description Data Source(s ) Smoking 05/11/2020 12:00:00 AM EST Current some day smoker com pleted Current some day smoker [facility] Smoking 05/04/2020 12:00:00 AM EST Current some day smoker com pleted Current some day smoker [facility] Smoking 04/19/2020 12:00:00 AM EST Current some day smoker com pleted Current some day smoker [facility] ([facility]) Smoking 04/10/2020 12:00:00 AM EST Current some day smoker com pleted Current some day smoker [facility] ([facility]) Smoking 03/13/2020 12:00:00 AM EST Current some day smoker com pleted Current some day smoker [facility] ([facility]) Smoking 02/08/2020 12:00:00 AM EST Former Smoker completed Former Smoker eCW1 ([facility]) Smoking 01/25/2020 12:00:00 AM EDT Current some day smoker com pleted Current some day smoker [facility] ([facility]) Smoking 01/12/2020 12:00:00 AM EDT Current some day smoker com pleted Current some day smoker [facility] ([facility]) Smoking 12/28/2019 12:00:00 AM EDT Current some day smoker com pleted Current some day smoker [facility] ([facility]) Smoking 09/23/2019 12:00:00 AM EDT Former Smoker completed Former Smoker eCW1 ([facility]) Smoking 09/09/2019 12:00:00 AM EDT Current some day smoker com pleted Current some day smoker [facility] ([facility]) Smoking 08/25/2019 12:00:00 AM EDT Current some day smoker com pleted Current some day smoker [facility] ([facility]) Smoking 08/18/2019 12:00:00 AM EDT Current some day smoker com pleted Current some day smoker [facility] ([facility]) Smoking 07/29/2019 12:00:00 AM EDT Current some day smoker com pleted Current some day smoker [facility] ([facility]) Smoking 06/29/2019 12:00:00 AM EDT Current some day smoker com pleted Current some day smoker [facility] ([facility]) Smoking 06/08/2019 12:00:00 AM EDT Current some day smoker com pleted Current some day smoker [facility] ([facility]) Smoking 05/20/2019 12:00:00 AM EST Current some day smoker com pleted Current some day smoker [facility] ([facility]) Smoking 04/27/2019 12:00:00 AM EST Current some day smoker com pleted Current some day smoker [facility] ([facility]) Smoking 04/15/2019 12:00:00 AM EST Current some day smoker com pleted Current some day smoker [facility] ([facility]) Vital Signs ID Date Data Source UNK Name Value Range Interpretation Code Description Data Source(s) Diastolic blood pressure 0 mm[Hg] Normal (applies to non-numeric results) 0 [facility]Hg] [facility] Systolic blood pressure 0 mm[Hg] Normal (applies t o non-numeric results) 0 mm[Hg] [facility] ([facility]) Body mass index (BMI) [Ratio] 0.00 kg/m2 No rmal (applies to non-numeric results) 0.00 kg/m2 [facility] Body weight Measured 0.00 lbs Normal (applies to n on-numeric results) 0.00 lbs [facility] ([facility]) Body height 0.00 in Normal (applies to non-numeric resu lts) 0.00 in [facility] ([facility]) Diastolic blood pressure 68 mm[Hg] 68 mm[Hg] eCW1 ([facility]) Systolic blood pressure 122 mm[Hg] 122 mm[Hg] e CW1 ([facility]) Body mass index (BMI) [Ratio] 35.18 kg/m2 35.18 kg/m2 eCW1 ([facility]) Body height 66 [in_i] 66 [in_i] eCW1 ([facility]) Body weight 218 [lb_av] 218 [lb_av] eCW1 ([facility]) Body mass index (BMI) [Ratio] 0.00 kg/m2 No rmal (applies to non-numeric results) 0.00 kg/m2 [facility] ([facility]) Body weight Measured 0.00 lbs Normal (applies to n on-numeric results) 0.00 lbs [facility] ([facility] [place]) Body height 0.00 in Normal (applies to non-numeric resu lts) 0.00 in [facility] ([facility]) Diastolic blood pressure 0 mm[Hg] Normal (applies to non-numeric results) 0 mm[Hg] [facility] ([facility] [place]) Systolic blood pressure 0 mm[Hg] Normal (applies t o non-numeric results) 0 mm[Hg] [facility] ([facility] [place]) Diastolic blood pressure 0 mm[Hg] Normal (applies to non-numeric results) 0 mm[Hg] [facility] ([facility] [place]) Systolic blood pressure 0 mm[Hg] Normal (applies t o non-numeric results) 0 mm[Hg] [facility] ([facility] [place]) Body mass index (BMI) [Ratio] 0.00 kg/m2 No rmal (applies to non-numeric results) 0.00 kg/m2 [facility] ([facility]) Body weight Measured 0.00 lbs Normal (applies to n on-numeric results) 0.00 lbs [facility] ([facility] [place]) Body height 0.00 in Normal (applies to non-numeric resu lts) 0.00 in [facility] ([facility]) Diastolic blood pressure 0 mm[Hg] Normal (applies to non-numeric results) 0 mm[Hg] [facility] ([facility] [place]) Systolic blood pressure 0 mm[Hg] Normal (applies t o non-numeric results) 0 mm[Hg] [facility] ([facility] [place]) Body mass index (BMI) [Ratio] 0.00 kg/m2 No rmal (applies to non-numeric results) 0.00 kg/m2 [facility] ([facility]) Body weight Measured 0.00 lbs Normal (applies to n on-numeric results) 0.00 lbs [facility] ([facility] [place]) Body height 0.00 in Normal (applies to non-numeric resu lts) 0.00 in [facility] ([facility]) Diastolic blood pressure 0 mm[Hg] Normal (applies to non-numeric results) 0 mm[Hg] [facility] ([facility]) Systolic blood pressure 0 mm[Hg] Normal (applies t o non-numeric results) 0 mm[Hg] [facility] ([facility]) Body mass index (BMI) [Ratio] 0.00 kg/m2 No rmal (applies to non-numeric results) 0.00 kg/m2 [facility] ([facility]) Body weight Measured 0.00 lbs Normal (applies to n on-numeric results) 0.00 lbs [facility] ([facility]) Body height 0.00 in Normal (applies to non-numeric resu lts) 0.00 in [facility] ([facility]) Patient Treatment Plan of Care Planned Activity Planned Date Details Description Data Source (s) Sprintec 28 0.25-35 MG-MCG 01/20/2020 12:00:00 AM EDT [email or web address] ([facility]) Sprintec 28 0.25-35 MG-MCG 01/20/2020 12:00:00 AM EDT [email or web address] ([facility])
[2020-05-26] MEDS ORDERED: ACETAMINOPHEN 500 MG TAB PO ONE (09:30)
[2020-05-26] MEDS ORDERED: BENZONATATE 100 MG CAP PO ONE (09:30)
--- NOTE | 2020-05-26 10:09 | REP ---
INDICATION: sob, cough. COMPARISON: No comparison study. TECHNIQUE: Portable upright AP chest radiograph. FINDINGS: The lungs are well inflated and free of infiltrate. Pleural angles are sharp. Heart size is normal. Pulmonary vasculature is not increased. IMPRESSION: No active disease. <Electronically signed by Jesús Palacios > 05/26/20 [id number]
[2020-05-26 10:27] VITALS: O2SAT 96
[2020-05-26 10:50] LABS: BASO % 0.5 % (0.0-1.0); EOS # 0.1 10^3/uL (0.0-0.5); EOS % 1.2 % (0.0-3.0); HEMATOCRIT 40.2 % (36.0-47.0); HEMOGLOBIN 13.1 g/dl (12.0-15.5); LYMPH # 2.8 10^3/uL (1.5-5.0); LYMPH % 31.6 % (24.0-44.0); MEAN CORPUSCULAR HEMOGLOBIN 28.3 pg (27.0-33.0); MEAN CORPUSCULAR HGB CONC 32.6 g/dl (32.0-36.5); MEAN CORPUSCULAR VOLUME 86.8 fl (80.0-96.0); MONO # 0.5 10^3/uL (0.0-0.8); MONO % 6.1 % (2.0-8.0); NEUTROPHILS # 5.3 10^3/uL (1.5-8.5); NEUTROPHILS % 60.3 % (36.0-66.0); PLATELET COUNT, AUTOMATED 287 10^3/uL (150-450); RED BLOOD COUNT 4.63 10^6/uL (4.00-5.40); WHITE BLOOD COUNT 8.8 10^3/uL (4.0-10.0)
== END 2020-05-26 12:01 | disposition home or self-care (01) ==
LOC: M ED 08:53
DX: Z11.52 Encounter for screening for COVID-19 (principal); J02.0 Streptococcal pharyngitis; J06.9 Acute upper respiratory infection, unspecified; B34.9 Viral infection, unspecified; R07.0 Pain in throat; F41.9 Anxiety disorder, unspecified; F32.9 Major depressive disorder, single episode, unspecified; Z79.899 Other long term (current) drug therapy; Z88.0 Allergy status to penicillin
CPT/HCPCS: 71045; 80047; 85025; 87804; 87880; 99284; U0003

== ENCOUNTER → 2020-06-26 | Outpatient (CLI) | payer OTHER ==
[2020-06-26 13:34] LABS: BASO # 0.1 10^3/uL (0.0-0.2); BASO % 0.6 % (0.0-1.0); EOS # 0.1 10^3/uL (0.0-0.5); EOS % 1.8 % (0.0-3.0); HEMATOCRIT 39.9 % (36.0-47.0); HEMOGLOBIN 13.2 g/dl (12.0-15.5); LYMPH # 2.8 10^3/uL (1.5-5.0); LYMPH % 36.1 % (24.0-44.0); MEAN CORPUSCULAR HEMOGLOBIN 28.8 pg (27.0-33.0); MEAN CORPUSCULAR HGB CONC 33.1 g/dl (32.0-36.5); MEAN CORPUSCULAR VOLUME 87.1 fl (80.0-96.0); MONO # 0.5 10^3/uL (0.0-0.8); MONO % 6.5 % (2.0-8.0); NEUTROPHILS # 4.3 10^3/uL (1.5-8.5); NEUTROPHILS % 54.7 % (36.0-66.0); PLATELET COUNT, AUTOMATED 266 10^3/uL (150-450); RED BLOOD COUNT 4.58 10^6/uL (4.00-5.40); WHITE BLOOD COUNT 7.8 10^3/uL (4.0-10.0)
[2020-06-26 14:05] LABS: ALBUMIN 3.6 GM/DL (3.2-5.2); ALT/SGPT 16 U/L (12-78); AMYLASE 59 U/L (25-115); BILIRUBIN,TOTAL 0.2 MG/DL (0.2-1.0); BLOOD UREA NITROGEN 9 MG/DL (7-18); CALCIUM LEVEL 8.9 MG/DL (8.5-10.1); CARBON DIOXIDE LEVEL 27 MEQ/L (21-32); CHLORIDE LEVEL 105 MEQ/L (98-107); CREATININE FOR GFR 0.83 MG/DL (0.55-1.30); GLOMERULAR FILTRATION RATE > 60.0 (>60); GLUCOSE, FASTING 97 MG/DL (70-100); LIPASE 123 U/L (73-393); POTASSIUM SERUM 4.1 MEQ/L (3.5-5.1); SODIUM LEVEL 138 MEQ/L (136-145); TOTAL PROTEIN 7.2 GM/DL (6.4-8.2)
[2020-06-26 15:09] LABS: FREE T3 2.5 PG/ML (2.2-4.0); FREE T4 0.85 NG/DL (0.76-1.46)
[2020-06-26 15:10] LABS: THYROID PEROXIDASE ANTIBODY < 28.0 U/ML (<60.0)
[2020-06-26 15:11] LABS: THYROGLOBULIN ANTIBODY 53.8 U/ML (<60.0)
== END ==
LOC: M LAB 13:01
PROVIDERS: ATTEND Physician Assistant
DX: R94.6 Abnormal results of thyroid function studies (principal); K59.09 Other constipation

== ENCOUNTER → 2020-08-08 | Outpatient (CLI) | payer OTHER ==
--- NOTE | 2020-08-09 09:14 | REP ---
INDICATION: N93.9 ABNORMAL UTERINE BLEEDING COMPARISON: None. TECHNIQUE: Transabdominal pelvic ultrasound followed by transvaginal examination for better evaluation of the endometrium and adnexa with color Doppler evaluation of the ovaries. FINDINGS: Bladder is unremarkable and measures 8.7 x 7.7 x 7.7 cm. Heterogeneous anteverted uterus measures 7.1 x 3.3 x 4.2 cm. The endometrial complex measures 5.0 may thickness. Small nabothian cysts are identified along with small calcifications along the endometrium. A small 6 mm hypodense focus is identified inseparable from the posterior uterine serosa which may represent small partially pedunculated fibroid. Bilateral ovaries are normal in appearance and vascularity without evidence for torsion. Right ovary measures 3.1 x 1.7 x 2.3 cm; R I = 0.50. Left ovary measures 2.8 x 2.1 x 2.3 cm; R I = 0.57. No pelvic fluid or significant pelvic abnormality noted. IMPRESSION: Relatively normal examination. Cannot exclude sub cm posterior subserosal fibroid. <Electronically signed by Tomas Ortega > 08/09/20 [id number]
== END ==
LOC: M WHC 12:53
PROVIDERS: ATTEND Obstetrics & Gynecology
DX: N93.9 Abnormal uterine and vaginal bleeding, unspecified (principal)

== ENCOUNTER → 2020-08-09 | Outpatient (REF) | payer OTHER ==
[2020-08-09 16:23] LABS: FREE T4 0.86 NG/DL (0.76-1.46); THYROID STIMULATING HORMONE 3.03 uIU/ML (0.358-3.740)
[2020-08-09 16:24] LABS: TOTAL 25(OH) VITAMIN D 36.5 NG/ML (30.0-100.0)
== END ==
LOC: M LAB REF 15:40
PROVIDERS: ATTEND Physician Assistant
DX: R53.83 Other fatigue (principal)

== ENCOUNTER → 2021-02-27 | Outpatient (CLI) | payer OTHER ==
[~2021-02-27] MED LIST changes: +QUET1TAB17 PO; -QUET25TA3 PO
[2021-02-27 16:04] LABS: HEMOGLOBIN A1c 5.2 %
[2021-02-27 16:12] LABS: ESTRADIOL 26.5 PG/ML; FOLLICLE STIMULATING HORMONE 7.8 mIU/mL; LUTEINIZING HORMONE 11.2 mIU/mL; PROLACTIN 10.8 NG/ML; THYROID STIMULATING HORMONE 3.21 uIU/ML (0.358-3.740)
== END ==
LOC: M PLALAB 13:05
PROVIDERS: ATTEND Obstetrics & Gynecology
DX: N91.4 Secondary oligomenorrhea (principal)

== ENCOUNTER → 2022-02-01 | Outpatient (REF) | payer OTHER, MEDICAID | LOC: M LAB REF 16:55 | PROVIDERS: ATTEND Pediatrics | DX: E03.9 Hypothyroidism, unspecified (principal) ==

== ENCOUNTER → 2022-05-06 | Outpatient (REF) | payer OTHER, MEDICAID | LOC: M LAB REF 16:24 | PROVIDERS: ATTEND Pediatrics | DX: E03.9 Hypothyroidism, unspecified (principal) ==

== ENCOUNTER → 2022-07-03 | Outpatient (REF) | payer OTHER, MEDICAID | LOC: M LAB REF 16:28 | PROVIDERS: ATTEND Pediatrics | DX: E03.9 Hypothyroidism, unspecified (principal) ==

== ENCOUNTER → 2022-09-18 | Outpatient (REF) | payer OTHER, MEDICAID ==
[2022-09-18 18:07] LABS: THYROID STIMULATING HORMONE 2.164 uIU/ML (0.55-4.78)
[2022-09-18 18:08] LABS: FREE T4 0.94 NG/DL (0.89-1.76)
== END ==
LOC: M LAB REF 16:17
PROVIDERS: ATTEND Pediatrics
DX: E03.9 Hypothyroidism, unspecified (principal)

== ENCOUNTER → 2022-12-03 | Outpatient (REF) | payer OTHER, MEDICAID | LOC: M LAB REF 16:31 | PROVIDERS: ATTEND Pediatrics | DX: E03.9 Hypothyroidism, unspecified (principal) ==

== ENCOUNTER → 2022-12-11 | Outpatient (REF) | payer OTHER | LOC: M PLALAB 14:33 | PROVIDERS: ATTEND Obstetrics & Gynecology | DX: Z12.4 Encounter for screening for malignant neoplasm of cervix (principal) ==

== ENCOUNTER → 2023-04-01 | Outpatient (REF) | payer OTHER, MEDICAID | LOC: M LAB REF 16:38 | PROVIDERS: ATTEND Pediatrics | DX: E03.9 Hypothyroidism, unspecified (principal) ==

== ENCOUNTER → 2023-06-30 | Outpatient (REF) | payer OTHER, MEDICAID | LOC: M SFHCDERM 17:17 | PROVIDERS: ATTEND Nurse Practitioner Family | DX: D22.4 Melanocytic nevi of scalp and neck (principal) ==

== ENCOUNTER → 2023-08-12 | Outpatient (CLI) | payer OTHER ==
[2023-08-12 18:02] LABS: HEMATOCRIT 39.4 % (36.0-47.0); HEMOGLOBIN 13.3 g/dl (12.0-15.5); MEAN CORPUSCULAR HEMOGLOBIN 29.1 pg (27.0-33.0); MEAN CORPUSCULAR HGB CONC 33.8 g/dl (32.0-36.5); MEAN CORPUSCULAR VOLUME 86.2 fl (80.0-96.0); PLATELET COUNT, AUTOMATED 293 10^3/uL (150-450); RED BLOOD COUNT 4.57 10^6/uL (4.00-5.40); WHITE BLOOD COUNT 10.7 10^3/uL (4.0-10.0)
[2023-08-12 19:02] LABS: HIV 1&2 SCREEN NEGATIVE (NEGATIVE)
[2023-08-12 19:10] LABS: HEPATITIS C VIRUS ABY INDEX < 0.02 INDEX (<0.8)
[2023-08-12 19:33] LABS: GC DNA AMPLIFICATION NEGATIVE (NEGATIVE)
== END ==
LOC: M PLALAB 14:36
PROVIDERS: ATTEND Specialist
DX: Z34.81 Encounter for supervision of other normal pregnancy, first trimester (principal)

== ENCOUNTER → 2023-08-26 | Outpatient (CLI) | payer MEDICAID, OTHER | LOC: M PLALAB 12:37 | PROVIDERS: ATTEND Specialist | DX: Z34.92 Encounter for supervision of normal pregnancy, unspecified, second trimester (principal) ==

== ENCOUNTER → 2023-09-08 | Outpatient (REF) | payer OTHER ==
[2023-09-08 18:52] LABS: CHOLESTEROL RISK RATIO 3.42 (<5); HDL CHOLESTEROL 67.1 MG/DL (>40); LDL CHOLESTEROL 139.7 MG/DL (<100); NON-HDL-C 162.9 MG/DL
[2023-09-08 18:55] LABS: THYROID STIMULATING HORMONE 2.281 uIU/ML (0.55-4.78)
== END ==
LOC: M LAB REF 17:26
PROVIDERS: ATTEND Pediatrics
DX: E78.5 Hyperlipidemia, unspecified (principal)

== ENCOUNTER → 2023-09-25 | Outpatient (CLI) | payer OTHER | LOC: M RAD 12:16 | PROVIDERS: ATTEND Specialist | DX: Z34.82 Encounter for supervision of other normal pregnancy, second trimester (principal) ==

== ENCOUNTER 2023-10-08 00:43 | Outpatient (CLI) | payer OTHER ==
[2023-10-08 00:52] VITALS: BP 115/60; O2SAT 98
[2023-10-08] MEDS ORDERED: LEVO75TA4 PO (01:08)
[2023-10-08] MEDS ORDERED: PRENTAB9 PO (01:08)
[2023-10-08] MEDS ORDERED: HOME MED LIST COMPLETE! XX SCH (01:10)
== END 2023-10-08 01:26 | disposition home or self-care (01) ==
LOC: M LDO 00:43
PROVIDERS: ATTEND Obstetrics & Gynecology
DX: O36.8120 Decreased fetal movements, second trimester, not applicable or unspecified (principal); Z3A.20 20 weeks gestation of pregnancy
CPT/HCPCS: 59025; G0463

== ENCOUNTER → 2023-11-05 | Outpatient (CLI) | payer OTHER ==
[~2023-11-05] MED LIST changes: +LEVO75TA4 PO; +PRENTAB9 PO
== END ==
LOC: M RAD 14:17
PROVIDERS: ATTEND Obstetrics & Gynecology
DX: O32.1XX0 Maternal care for breech presentation, not applicable or unspecified (principal); Z3A.24 24 weeks gestation of pregnancy

== ENCOUNTER → 2023-11-13 | Outpatient (CLI) | payer OTHER ==
[2023-11-13 13:26] LABS: HEMOGLOBIN 12.4 g/dl (12.0-15.5); MEAN CORPUSCULAR HEMOGLOBIN 29.5 pg (27.0-33.0); MEAN CORPUSCULAR HGB CONC 33.5 g/dl (32.0-36.5); MEAN CORPUSCULAR VOLUME 87.9 fl (80.0-96.0); PLATELET COUNT, AUTOMATED 250 10^3/uL (150-450); RED BLOOD COUNT 4.21 10^6/uL (4.00-5.40); WHITE BLOOD COUNT 11.2 10^3/uL (4.0-10.0)
[2023-11-13 14:07] LABS: GLUCOSE CHALLENGE TEST 1 HOUR 77 MG/DL (LESS THAN 140)
[2023-11-13 14:37] LABS: HIV 1&2 SCREEN NEGATIVE (NEGATIVE)
[2023-11-13 14:44] LABS: HEPATITIS C VIRUS ABY INDEX < 0.02 INDEX (<0.8)
[2023-11-13 14:59] LABS: GC DNA AMPLIFICATION NEGATIVE (NEGATIVE)
== END ==
LOC: M PLALAB 08:24
PROVIDERS: ATTEND Obstetrics & Gynecology
DX: Z34.92 Encounter for supervision of normal pregnancy, unspecified, second trimester (principal)

== ENCOUNTER 2023-11-26 15:41 | Outpatient (CLI) | payer MEDICAID, OTHER ==
[~2023-11-26] VITALS: Ht 167.6 cm; Wt 99.4 kg
[2023-11-26 15:56] VITALS: BP 116/69; O2SAT 95
== END 2023-11-26 16:45 | disposition home or self-care (01) ==
LOC: M LDO 15:41
PROVIDERS: ATTEND Advanced Practice Midwife
DX: O36.8120 Decreased fetal movements, second trimester, not applicable or unspecified (principal); O26.22 Pregnancy care for patient with recurrent pregnancy loss, second trimester; Z3A.27 27 weeks gestation of pregnancy; Z88.1 Allergy status to other antibiotic agents
CPT/HCPCS: 59025; G0463

== ENCOUNTER → 2023-12-02 | Outpatient (CLI) | payer OTHER | LOC: M RAD 14:48 | PROVIDERS: ATTEND Obstetrics & Gynecology | DX: Z34.93 Encounter for supervision of normal pregnancy, unspecified, third trimester (principal); Z3A.28 28 weeks gestation of pregnancy ==

== ENCOUNTER → 2023-12-31 | Outpatient (REF) | payer OTHER, MEDICAID | LOC: M LAB REF 16:29 | PROVIDERS: ATTEND Pediatrics | DX: E03.9 Hypothyroidism, unspecified (principal) ==

== ENCOUNTER → 2024-01-19 | Outpatient (REF) | payer OTHER, MEDICAID | LOC: M SFHCWAGY 17:01 | PROVIDERS: ATTEND Specialist | DX: Z36.85 Encounter for antenatal screening for Streptococcus B (principal); Z3A.36 36 weeks gestation of pregnancy ==

== ENCOUNTER → 2024-02-05 | Outpatient (CLI) | payer OTHER | LOC: M WHC 13:07 | PROVIDERS: ATTEND Specialist | DX: O36.5993 Maternal care for other known or suspected poor fetal growth, unspecified trimester, fetus 3 (principal); Z3A.38 38 weeks gestation of pregnancy ==

== ENCOUNTER 2024-02-13 07:08 | Inpatient (IN) | payer OTHER, MEDICAID ==
[~2024-02-13] VITALS: Ht 167.6 cm; Wt 109.5 kg
[2024-02-13] VITALS (25 sets, daily range): BP systolic 109–146; BP diastolic 56–81; O2SAT 98
[2024-02-13] MEDS ORDERED: HOME MED LIST COMPLETE! XX SCH (07:35)
[2024-02-13] MEDS ORDERED: LIDOCAINE 1% MDV 20ML VIAL INFIL PRN (07:40)
[2024-02-13] MEDS ORDERED: OXYTOCIN DRIP 30 UNITS in IV 1 EA IV PRN (07:40)
[2024-02-13] MEDS: ceFAZolin SOD 2 GM in IV 1 EA IV STA (08:10)
[2024-02-13 08:50] LABS: HEMATOCRIT 35.8 % (36.0-47.0); HEMOGLOBIN 11.9 g/dl (12.0-15.5); MEAN CORPUSCULAR HEMOGLOBIN 28.3 pg (27.0-33.0); MEAN CORPUSCULAR HGB CONC 33.2 g/dl (32.0-36.5); MEAN CORPUSCULAR VOLUME 85.2 fl (80.0-96.0); PLATELET COUNT, AUTOMATED 235 10^3/uL (150-450); WHITE BLOOD COUNT 10.8 10^3/uL (4.0-10.0)
[2024-02-13 09:58] LABS: HEPATITIS C VIRUS ABY INDEX 0.02 INDEX (<0.8)
[2024-02-13] MEDS: OXYTOCIN DRIP 30 UNITS in IV 1 EA IV SCH (12:42)
[2024-02-13] MEDS: LR 1,000 ML IV SCH (12:42)
[2024-02-13] MEDS ORDERED: FENTANYL 2MCG/ML ROPIVACAINE 0.2% IN 0.9% NACL 100ML IVBAG As Ordered ONE (14:46)
[2024-02-13] MEDS ORDERED: ONDANSETRON 4MG 2ML VIAL IV PRN (14:50)
[2024-02-13] MEDS ORDERED: LR 500 ML IV PRN (14:50)
[2024-02-13] MEDS ORDERED: NALOXONE INJ 0.4MG/1ML VIAL IV PRN (14:50)
[2024-02-13] MEDS ORDERED: diphenhydrAMINE 50MG/ML VIAL IV PRN (14:50)
[2024-02-13] MEDS ORDERED: ePHEDrine SULFATE 25 MG/5 ML(5MG/ML) SYRINGE IVP PRN (14:50)
[2024-02-13] MEDS ORDERED: EPIDURAL/PCA KEYS XX PRN (14:50)
[2024-02-13] MEDS: FENTANYL/ROPIVACAINE/NACL BAG 100 ML EPIDURAL SCH (14:57)
[2024-02-13] MEDS: ceFAZolin SOD 1 GM in DEXTROSE 5% (D5W) ADV/MINI-BAG 50 ML IV SCH (16:18)
[2024-02-13] MEDS ORDERED: RHOGAM 300MCG (1500IU) INJ IM SCH (16:50)
[2024-02-13] MEDS ORDERED: DOCUSATE SODIUM 100MG CAPSULE PO PRN (16:50)
[2024-02-13] MEDS ORDERED: ACETAMINOPHEN 325 MG TAB PO PRN (16:50)
[2024-02-13] MEDS ORDERED: METHYLERGONOVINE MALEATE 0.2 MG TAB PO PRN (16:50)
[2024-02-13] MEDS: DIBUCAINE 1% OINTMENT 30GM TOP PRN (22:49)
[2024-02-14] MEDS: LEVOTHYROXINE 75MCG TABLET (0.075MG) PO SCH (05:44)
[2024-02-14] MEDS: IBUPROFEN 800 MG TAB PO PRN (05:44)
[2024-02-14 05:58] VITALS: BP 126/74; O2SAT 96
[2024-02-14] MEDS: PRENATAL VITAMINS CHEWABLE TABLET PO SCH (08:35)
[2024-02-14] MEDS: ACETAMINOPHEN 500 MG TAB PO PRN (11:31)
[2024-02-14 18:00] VITALS: BP 133/76; O2SAT 99
[2024-02-14] MEDS: IBUPROFEN 600MG TAB PO PRN (22:21)
[2024-02-15 05:35] VITALS: BP 128/65; O2SAT 100
[2024-02-15] MEDS: MEASLES,MUMPS,RUBELLA VACCINE INJ (MMR-II) SC.IMMUN ONE (08:39)
== END 2024-02-15 13:15 | disposition home or self-care (01) | DRG 560 ==
LOC: M LDO 07:08 → M LDI 07:34 → M OBS 18:08
PROVIDERS: ADMIT Advanced Practice Midwife; ATTEND Obstetrics & Gynecology
PROC: 10E0XZZ Delivery of Products of Conception, External Approach (ICD-10-PCS; principal; 2024-02-13)
PROC: 0HQ9XZZ Repair Perineum Skin, External Approach (ICD-10-PCS; 2024-02-13)
DX: O70.0 First degree perineal laceration during delivery (principal); Z37.0 Single live birth; Z3A.39 39 weeks gestation of pregnancy

== ENCOUNTER → 2024-07-13 | Outpatient (REF) | payer OTHER, MEDICAID | LOC: M LAB REF 17:41 | PROVIDERS: ATTEND Pediatrics | DX: E03.9 Hypothyroidism, unspecified (principal) ==

== ENCOUNTER → 2025-02-28 | Outpatient (REF) | payer OTHER, MEDICAID ==
[~2025-02-28] MED LIST changes: -DEPA250T32 PO; +DIVA-65 PO; +IBUP600T42 PO
[2025-02-28 16:40] LABS: CHOLESTEROL LEVEL 272.0 MG/DL (<200); CHOLESTEROL RISK RATIO 3.82 (<5); LDL CHOLESTEROL 177.7 MG/DL (<100); NON-HDL-C 200.9 MG/DL; TRIGLYCERIDES LEVEL 116.0 MG/DL (<150)
[2025-02-28 16:48] LABS: ESTIMATED AVERAGE GLUCOSE 105.0 MG/DL (60-110)
== END ==
LOC: M LAB REF 16:13
PROVIDERS: ATTEND Pediatrics
DX: E78.5 Hyperlipidemia, unspecified (principal); E66.9 Obesity, unspecified; E03.9 Hypothyroidism, unspecified